=== PATIENT | female | born 1990 | race Caucasian/White ===

== ENCOUNTER → 2017-12-29 14:44 | Outpatient (CLI) | payer OTHER, MEDICAID, SELFPAY ==
[2018-01-19 16:36] LABS: HCG Quantitative /Beta subunit < 2.39 mIU/mL
== END ==
PROVIDERS: PCP Family Medicine; Visit Provider Family Medicine
DX: N94.6 Dysmenorrhea, unspecified (principal)
CPT/HCPCS: 36415; 84702

== ENCOUNTER → 2018-01-04 09:05 | Outpatient (CLI) | payer OTHER, MEDICAID, SELFPAY | PROVIDERS: Family Provider Family Medicine; PCP Family Medicine; Visit Provider Family Medicine | DX: R30.0 Dysuria (principal) ==

== ENCOUNTER 2018-07-26 16:41 | Emergency (ER) | payer OTHER, MEDICAID, SELFPAY ==
[2018-07-26 17:08] VITALS: BP 106/71; PULSE 103; RESP 18; TEMP 37.2; O2SAT 98; BMI 20.1
[2018-07-26 20:03] VITALS: BP 119/92; PULSE 88; RESP 20; TEMP 36.9; O2SAT 100
[2018-07-26] MEDS: KETOROLAC 60 MG/2 ML VIAL IM (21:10)
[2018-07-26] MEDS: OXYCODONE/ACETAMINOPHEN 5/325 TABLET 1 TAB PO (21:10)
[2018-07-26 21:41] VITALS: BP 124/86; PULSE 82; RESP 16; O2SAT 100
--- NOTE | 2018-08-04 12:32 | ED.ABDPAIN ---
HPI - Abdominal Pain General Chief Complaint: Abdominal Pain Stated Complaint: OVARIAN CYST CAUSING PROBLEMS Time Seen by Provider: 07/26/18 20:09 Source: patient Mode of arrival: ambulatory Limitations: no limitations History of Present Illness HPI narrative: Patient complains of pelvic pain for the past week, and states she has a history of an ovarian cyst, which she has concern may have ruptured. She states that she does not have any more of her pain medicine, and that it was not working very well. Patient has had prior imaging demonstrating ovarian cyst, and in fact, had a workup including UA and ultrasound, on Thursday for the same problem. She states she was sent here by Dr. Eng for pain control, and was also seen at [facility] emergency department on Thursday. The patient states that she is a patient of Dr. Acosta, but that she has not been able to get in to see Dr. Acosta for this problem. Patient states she has not had any vaginal bleeding or discharge. No nausea or vomiting. No diarrhea or hematoma to area. No melena or hematochezia. No dysuria. No fevers. No chest symptoms. Patient states that the pain is suprapubic and slightly to the left. Pain is 5/10 currently and has been 10/10 at the worst. Nothing makes better or worse. Related Data Home Medications Medication Instructions Recorded Confirmed acetaminophen [Tylenol Extra 0 mg PO Q6HP PRN #0 10/01/17 07/19/18 Strength] ibuprofen 600 mg PO Q6HP PRN #0 10/01/17 07/26/18 desogestrel-ethinyl estradiol 1 tab PO DAILY 07/26/18 07/26/18 [Enskyce] doxycycline hyclate 100 mg PO [id number] 07/26/18 07/26/18 fluconazole 150 mg PO QWEEK 07/26/18 07/26/18 hydrocodone-acetaminophen 1 tab PO Q6H PRN 07/26/18 07/26/18 ondansetron HCl [Zofran] 8 mg PO Q6H PRN 07/26/18 07/26/18 Previous Rx's Medication Instructions Recorded albuterol sulfate HFA 90 2 puff INHALATION Q4HP PRN #1 inh 04/02/18 mcg/actuation aerosol inhaler pregabalin 150 mg capsule 150 mg PO BID #60 cap 04/02/18 lorazepam 0.5 mg tablet 0.5 mg PO Q6H PRN #20 tab 05/20/18 cyclobenzaprine 10 mg tablet 10 mg PO TID #30 tab 06/14/18 dicyclomine 20 mg tablet 20 mg PO QID #45 tab 06/16/18 oxycodone-acetaminophen 5 mg-325 1 tab PO BEDTIME PRN #10 tab 07/19/18 mg tablet sertraline 50 mg tablet 75 mg PO DAILY #45 tab 07/19/18 oxycodone-acetaminophen [Percocet] 1 tab PO Q4-6H PRN #8 tab 07/26/18 ketorolac 10 mg tablet 10 mg PO Q6H PRN 2 Days #8 tab 08/04/18 levonorgestrel 0.15 mg-ethinyl 1 tab PO DAILY #28 tab 08/04/18 estradiol 0.03 mg tablet oxycodone-acetaminophen 5 mg-325 1 tab PO Q4-6H PRN #10 tab 08/04/18 mg tablet Allergies Allergy/AdvReac Type Severity Reaction Status Date / Time clindamycin [CLINDAMYCIN] Allergy Unknown Verified 07/26/18 17:14 codeine [CODEINE] Allergy Unknown Verified 07/26/18 17:14 gabapentin [GABAPENTIN] Allergy Unknown too Verified 07/26/18 17:14 sedating morphine [MORPHINE] Allergy Unknown Verified 07/26/18 17:14 tramadol [TRAMADOL] Allergy Unknown Verified 07/26/18 17:14 pain contract Allergy Unknown Uncoded 04/02/18 13:55 Review of Systems Review of Systems All systems reviewed & are unremarkable except as noted in HPI and below Constitutional Denies chills, Denies fever(s), Denies lethargy and Denies weakness Eyes Denies change in vision, Denies eye discharge, Denies irritation and Denies loss of vision ENT Ears, Nose, Mouth, and Throat: Denies change in voice, Denies neck pain and Denies sore throat Cardiovascular Denies chest pain, Denies irregular heart rhythm, Denies lightheadedness, Denies palpitations, Denies dyspnea, Denies dyspnea on exertion and Denies orthopnea Respiratory Denies cough, Denies dyspnea, Denies dyspnea on exertion and Denies wheezing Gastrointestinal Gastrointestinal: Reports abdominal pain ( pelvic), Denies change in bowel habits, Denies diarrhea, Denies nausea and Denies vomiting Genitourinary Denies hematuria, Denies flank pain, Denies urinary incontinence and Denies urinary urgency Musculoskeletal Denies neck pain Integumentary/Breasts Denies pruritus, Denies erythema, Denies rash and Denies wounds Neurologic Denies confusion, Denies loss of vision and Denies weakness Psychiatric Denies anxiety, Denies confusion, Denies depression, Denies homicidal ideation and Denies suicidal ideation Endocrine Denies palpitations Hematologic/Lymphatic Denies easy bruising Allergic/Immunologic Denies wheezing [facility] Medical History Headache (Chronic ~1999) Anxiety and depression (Chronic) Abnormal Pap smear of cervix (Chronic) Acne (Chronic ~2012) Ankle pain (Chronic) Frequent UTI (Chronic) Human papillomavirus (Chronic ~2008) IBS (irritable bowel syndrome) (Chronic ~2007) Lumbar strain (Chronic) Migraines (Chronic) Ovarian cyst (Chronic ~2009) PTSD (post-traumatic stress disorder) (Chronic) Painful menstrual periods (Chronic) Seasonal allergies (Chronic) Shoulder pain (Chronic) Chickenpox (Resolved ~1991) Surgical History History of delivery (Resolved) History of delivery (Resolved) History of laminectomy (Resolved ~06/09/97) History of microdiscectomy (Resolved) Anesthesia (Inactive) Status post laparoscopy (12/26/11) Family History Brother Age: 29 Hepatitis C Father Age: 48 Heart disease Mental health problem Heart attack Grandmother Breast cancer Grandfather Age: 76 Stroke Grandmother Age: 70 Heart attack Hepatitis C Lupus Social History Smoking Status: Current every day smoker Exam Initial Vital Signs Initial Vital Signs: Vital Signs Temperature 99.0 F 07/26/18 17:08 Pulse Rate 103 H 07/26/18 17:08 Respiratory Rate 18 07/26/18 17:08 Blood Pressure 106/71 07/26/18 17:08 Pulse Oximetry 98 07/26/18 17:08 Const General: cooperative and well developed Nutritional Appearance: well nourished Orientation: alert, awake, oriented x3 and not confused HENPR Head: normocephalic and atraumatic Ears: external ears normal and TM's normal bilaterally Nose: external nose normal and No nasal discharge Face and sinus: sinuses nontender, face symmetric, no sinus tenderness and No dry mucous membranes Mouth: oral mucosae normal and moist mucous membranes Teeth and gingiva: dentition normal Throat: tonsils normal and uvula midline Eyes General: appearance normal, both eyes and all related structures Eyelids: eyelids normal Conjunctivae: conjunctivae normal Sclera: sclerae normal Pupils: PERRL EOM: EOM intact bilaterally Neck Neck: normal visual inspection, trachea midline, No lymphadenopathy, No midline deformity and No JVD Lymphatic: No lymphedema Chest Chest: normal inspection of the chest Resp Effort & Inspection: normal respiratory effort, able to speak in complete sentences, no respiratory distress and no use of accessory muscles Auscultation: clear to auscultation bilaterally, no rales, no rhonchi and no wheezes Cardio Rate: regular rate Rhythm: regular rhythm Heart Sounds: no click, no gallops, no murmurs and no rubs Pulses: normal peripheral pulses GI Inspection: non-distended Palpation: soft, no hepatosplenomegaly, No guarding, No pulsatile mass, No rigid and tender ( moderate, left lower quadrant and suprapubic area. No rebound or guarding.) Auscultation: normal bowel sounds Back/Spine/Pelvis Back: No CVA tenderness Cervical Spine: cervical ROM normal and No pain with cervical ROM Thoracic/Lumbar Spine: thoracic and lumbar spine normal to inspection Skin General: no rashes or lesions noted, No jaundice and No petechiae Neuro General: alert, oriented x3, gait normal and no focal motor deficits Speech: speech normal Extrem General: full ROM, no clubbing, cyanosis or edema, no pedal edema and no calf tenderness Psych Appearance: well kempt Mental Status: mental status grossly normal Attitude: cooperative Thought Content: normal and suicidality Judgment: judgment good Course Course Narrative: Patient was treated symptomatically for her pain. She stated the pain had been going on for the last few days, and I did not feel that this was likely to be a torsion, at this point. The patient had already had imaging which demonstrated a cyst, as well as negative urinary workup,and I felt at this point, as the patient stated her home medications were not working well enough, that the patient would need to ultimately follow up with her OBGYN , Dr. Acosta, to have further evaluation, and decide if the cyst should be surgically removed, or treated more conservatively. The patient has been given a dose of Toradol and Percocet in the emergency department which she states has improved her pain. Orders Ordered: Discontinued Medications Ketorolac Tromethamine (Toradol) 60 mg IM NOW ONE Stop: 07/26/18 20:55 Last Admin: 07/26/18 21:10 Dose: 60 mg Oxycodone/Acetaminophen (Percocet 5/325) 1 tab PO NOW ONE Stop: 07/26/18 20:55 Last Admin: 07/26/18 21:10 Dose: 1 tab MDM - Abdominal Pain Medical Records Attestation: I reviewed the patient's medical records. Discharge Plan Departure Patient Disposition: Home Clinical Impression: Pelvic pain Discharge Date/Time: 07/26/18 21:50 Interventions: ED Discharge Assessment Last Done: 07/26/18 21:41 Instructions: Chronic Pelvic Pain-Female Activity Restrictions/Additional Instructions: Please call Dr. Acosta's office tomorrow to set up an appointment with Dr. Acosta or one of her associates. Prescriptions: New oxycodone-acetaminophen [Percocet] 5-325 mg tablet 1 tab PO Q4-6H PRN (Reason: pain) Qty: 8 RF: 0 No Action acetaminophen [Tylenol Extra Strength] 500 MG tablet PO Q6HP PRNQty: 0 RF: 0 ibuprofen 600 MG tablet 600 mg PO Q6HP PRN (Reason: pain) Qty: 0 RF: 0 dicyclomine 20 mg tablet 20 mg PO QID Qty: 45 RF: 0 pregabalin [Lyrica] 150 mg capsule 150 mg PO BID Qty: 60 RF: 2 albuterol sulfate [Ventolin HFA] 90 mcg/actuation HFA aerosol inhaler 2 puff INHALATION Q4HP PRN (Reason: shortness of breath or wheezing) Qty: 1 RF: 5 cyclobenzaprine 10 mg tablet 10 mg PO TID Qty: 30 RF: 0 sertraline 50 mg tablet 75 mg PO DAILY Qty: 45 RF: 2 oxycodone-acetaminophen 5-325 mg tablet 1 tab PO BEDTIME PRN (Reason: pain) Qty: 10 RF: 0 lorazepam 0.5 mg tablet 0.5 mg PO Q6H PRN (Reason: anxiety) Qty: 20 RF: 1 levonorgestrel-ethinyl estrad [Gloria] 0.15-0.03 mg tablet 1 tab PO DAILY Qty: 28 RF: 11 ketorolac 10 mg tablet 10 mg PO Q6H PRN (Reason: pain) 2 Days Qty: 8 RF: 0 oxycodone-acetaminophen [Percocet] 5-325 mg tablet 1 tab PO Q4-6H PRN (Reason: pain) Qty: 10 RF: 0 desogestrel-ethinyl estradiol [Enskyce] 0.15-0.03 mg tablet 1 tab PO DAILY RF: 0 doxycycline hyclate 100 mg capsule 100 mg PO [id number] RF: 0 fluconazole 150 mg tablet 150 mg PO QWEEK RF: 0 hydrocodone-acetaminophen 5-325 mg tablet 1 tab PO Q6H PRN (Reason: pain) RF: 0 ondansetron HCl [Zofran] 8 mg tablet 8 mg PO Q6H PRN (Reason: nausea) RF: 0 Referrals: Beth Acosta MD [Physician] - Pricila Eng DO [Primary Care Provider] -
== END 2018-07-26 21:50 | disposition home or self-care (01) ==
PROVIDERS: Emergency Provider Emergency Medicine; Family Provider Family Medicine; PCP Family Medicine
DX: R10.2 Pelvic and perineal pain (principal)
CPT/HCPCS: 96372; 99282; 99283; J1885

== ENCOUNTER 2018-10-08 16:18 | Emergency (ER) | payer OTHER, MEDICAID, SELFPAY ==
[2018-10-08 16:28] VITALS: BP 118/84; PULSE 102; RESP 18; TEMP 36.3; O2SAT 100
--- NOTE | 2018-10-08 19:34 | ED.FEMALEGU ---
HPI - Female Genitourinary <ARGENIS Hui - Last Filed: 10/08/18 21:58> General Chief complaint: Urogenital-Female Stated complaint: pelvic pain x 4 days Time Seen by Provider: 10/08/18 17:43 Source: patient Mode of arrival: ambulatory Limitations: no limitations History of Present Illness HPI Narrative: 27-year-old female with history of chronic pain and ovarian cyst who is an everyday smoker here for complaint of pain into her pelvic region over the past 4 days. She denies any vaginal bleeding. She does state that she has had little increased vaginal discharge over the past couple of weeks. She states that this may be due to the fact that she changed control pills. she is unsure of her last menstrual period. She denies any nausea vomiting. Last bowel movement was yesterday and was unremarkable. No urinary symptoms. She states she is concerned that she has an ovarian cyst she has had this in the past. Worsening pain with palpation to the pelvic region. She denies being sexually active over the past several months. Related Data Home Medications Medication Instructions Recorded Confirmed acetaminophen [Tylenol Extra 0 mg PO Q6HP PRN #0 10/01/17 09/22/18 Strength] ibuprofen 600 mg PO Q6HP PRN #0 10/01/17 09/22/18 Previous Rx's Medication Instructions Recorded albuterol sulfate HFA 90 2 puff INHALATION Q4HP PRN #1 inh 04/02/18 mcg/actuation aerosol inhaler dicyclomine 20 mg tablet 20 mg PO QID #45 tab 06/16/18 levonorgestrel 0.15 mg-ethinyl 1 tab PO DAILY #28 tab 08/04/18 estradiol 0.03 mg tablet pregabalin 150 mg capsule 150 mg PO BID #60 cap 08/13/18 sertraline 100 mg tablet 100 mg PO DAILY #30 tab 08/27/18 oxycodone-acetaminophen 5 mg-325 1 tab PO Q4-6H PRN #10 tab 09/22/18 mg tablet ondansetron HCl 8 mg tablet 8 mg PO Q6H PRN #30 tab 09/23/18 diazepam 10 mg tablet 10 mg PO TID PRN #45 tab 10/06/18 Allergies Allergy/AdvReac Type Severity Reaction Status Date / Time clindamycin [CLINDAMYCIN] Allergy Unknown Verified 09/22/18 15:31 codeine [CODEINE] Allergy Unknown Verified 09/22/18 15:31 gabapentin [GABAPENTIN] Allergy Unknown too Verified 09/22/18 15:31 sedating morphine [MORPHINE] Allergy Unknown Verified 09/22/18 15:31 tramadol [TRAMADOL] Allergy Unknown Verified 09/22/18 15:31 pain contract Allergy Unknown Uncoded 09/22/18 15:31 Review of Systems <ARGENIS Hui - Last Filed: 10/08/18 21:58> Constitutional Denies chills, Denies fever(s), Denies lethargy and Denies weakness Eyes Denies change in vision, Denies eye discharge, Denies irritation and Denies loss of vision ENT Ears, Nose, Mouth, and Throat: Denies change in voice, Denies neck pain and Denies sore throat Cardiovascular Denies chest pain, Denies irregular heart rhythm, Denies lightheadedness, Denies palpitations, Denies dyspnea, Denies dyspnea on exertion and Denies orthopnea Respiratory Denies cough, Denies dyspnea, Denies dyspnea on exertion and Denies wheezing Gastrointestinal Comments: Abdominal/ pelvic pain Genitourinary Denies hematuria, Denies flank pain, Denies urinary incontinence and Denies urinary urgency Musculoskeletal Denies neck pain Integumentary/Breasts Denies pruritus, Denies erythema, Denies rash and Denies wounds Neurologic Denies confusion, Denies loss of vision and Denies weakness Psychiatric Denies anxiety, Denies confusion, Denies depression, Denies homicidal ideation and Denies suicidal ideation Endocrine Denies palpitations Hematologic/Lymphatic Denies easy bruising Allergic/Immunologic Denies wheezing PFSH <ARGENIS Hui - Last Filed: 10/08/18 21:58> Medical History IBS (irritable bowel syndrome) (Chronic ~2007) Ovarian cyst (Chronic ~2009) Headache (Chronic ~1999) Anxiety and depression (Chronic) Abnormal Pap smear of cervix (Chronic) Acne (Chronic ~2012) Ankle pain (Chronic) Frequent UTI (Chronic) Human papillomavirus (Chronic ~2008) Lumbar strain (Chronic) Migraines (Chronic) PTSD (post-traumatic stress disorder) (Chronic) Painful menstrual periods (Chronic) Seasonal allergies (Chronic) Shoulder pain (Chronic) Chickenpox (Resolved ~1991) Surgical History History of delivery (Resolved) History of delivery (Resolved) History of laminectomy (Resolved ~06/09/97) History of microdiscectomy (Resolved) Anesthesia (Inactive) Status post laparoscopy (12/26/11) Family History Brother Age: 29 Hepatitis C Father Age: 49 Heart disease Mental health problem Heart attack Grandmother Breast cancer Grandfather Age: 77 Stroke Grandmother Age: 71 Heart attack Hepatitis C Lupus Social History Smoking Status: Current every day smoker Family History Brother Age: 29 Hepatitis C Father Age: 49 Heart disease Mental health problem Heart attack Grandmother Breast cancer Grandfather Age: 77 Stroke Grandmother Age: 71 Heart attack Hepatitis C Lupus Social History Smoking Status: Current every day smoker Exam <ARGENIS Hui - Last Filed: 10/08/18 21:58> Initial Vital Signs Initial Vital Signs: Vital Signs Temperature 97.4 F L 10/08/18 16:28 Pulse Rate 102 H 10/08/18 16:28 Respiratory Rate 18 10/08/18 16:28 Blood Pressure 118/84 10/08/18 16:28 Pulse Oximetry 100 10/08/18 16:28 Const General: cooperative and well developed Nutritional Appearance: well nourished Orientation: alert, awake, oriented x3 and not confused [facility] Mouth: oral mucosae normal and moist mucous membranes Eyes Conjunctivae: conjunctivae normal Sclera: sclerae normal Pupils: PERRL EOM: EOM intact bilaterally Resp Effort & Inspection: normal respiratory effort, able to speak in complete sentences, no respiratory distress and no use of accessory muscles Auscultation: clear to auscultation bilaterally, no rales, no rhonchi and no wheezes Cardio Rate: regular rate Rhythm: regular rhythm Heart Sounds: no click, no gallops, no murmurs and no rubs Pulses: normal peripheral pulses GI Inspection: non-distended Palpation: soft, no hepatosplenomegaly, No guarding, No pulsatile mass and tender ( tenderness to right lower quadrant and also to a pelvic region.) Auscultation: normal bowel sounds General: No CVA tenderness Skin General: no rashes or lesions noted, No jaundice and No petechiae Neuro General: alert, oriented x3, gait normal and no focal motor deficits Speech: speech normal <Kapil Younger DO - Last Filed: 10/08/18 23:32> Initial Vital Signs Initial Vital Signs: Vital Signs Temperature 97.4 F L 10/08/18 16:28 Pulse Rate 102 H 10/08/18 16:28 Respiratory Rate 18 10/08/18 16:28 Blood Pressure 118/84 10/08/18 16:28 Pulse Oximetry 100 10/08/18 16:28 Course <ARGENIS Hui - Last Filed: 10/08/18 21:58> Orders Ordered: ED Orders 10/08/18 19:34 CT abdomen pelvis w con Stat US pelvic complete Stat 10/08/18 20:00 Complete Blood Count AUTO DIFF Stat Comprehensive Metabolic Panel Stat Lipase Stat Discontinued Medications Hydromorphone HCl (Dilaudid) 1 mg IV NOW ONE Stop: 10/08/18 20:23 Last Admin: 10/08/18 20:38 Dose: 1 mg Sodium Chloride (Normal Saline 0.9%) 1,000 mls @ 1,000 mls/hr IV BOLUS ONE Stop: 10/08/18 20:33 Last Infusion: 10/08/18 21:01 Dose: 0 mls/hr Admin: 10/08/18 20:04 Dose: 1,000 mls/hr Ondansetron HCl (Zofran) 4 mg IV NOW ONE Stop: 10/08/18 19:35 Last Admin: 10/08/18 20:04 Dose: 4 mg Vital Signs - 8 hr 10/08/18 16:28 10/08/18 20:22 10/08/18 22:01 Temperature 97.4 F L Pulse Rate 102 H 78 77 Respiratory Rate 18 10 L 18 Blood Pressure 118/84 Blood Pressure [Left Arm] 113/72 115/71 Pulse Oximetry 100 100 100 <Kapil Younger DO - Last Filed: 10/08/18 23:32> Orders Ordered: ED Orders 10/08/18 19:34 CT abdomen pelvis w con Stat US pelvic complete Stat 10/08/18 20:00 Complete Blood Count AUTO DIFF Stat Comprehensive Metabolic Panel Stat Lipase Stat Discontinued Medications Hydromorphone HCl (Dilaudid) 1 mg IV NOW ONE Stop: 10/08/18 20:23 Last Admin: 10/08/18 20:38 Dose: 1 mg Sodium Chloride (Normal Saline 0.9%) 1,000 mls @ 1,000 mls/hr IV BOLUS ONE Stop: 10/08/18 20:33 Last Infusion: 10/08/18 21:01 Dose: 0 mls/hr Admin: 10/08/18 20:04 Dose: 1,000 mls/hr Ondansetron HCl (Zofran) 4 mg IV NOW ONE Stop: 10/08/18 19:35 Last Admin: 10/08/18 20:04 Dose: 4 mg Vital Signs - 8 hr 10/08/18 16:28 10/08/18 20:22 10/08/18 22:01 Temperature 97.4 F L Pulse Rate 102 H 78 77 Respiratory Rate 18 10 L 18 Blood Pressure 118/84 Blood Pressure [Left Arm] 113/72 115/71 Pulse Oximetry 100 100 100 MDM - Female Genitourinary <ARGENIS Hui - Last Filed: 10/08/18 21:58> Lab Data Result diagrams: 10/08/18 20:00 10/08/18 20:00 Lab Results 10/08/18 10/08/18 Range/Units 20:00 20:00 WBC 10.7 (4.5-11.0) X10^3/uL RBC 4.01 (4.0-5.2) X10^6/uL Hgb 12.9 (12.0-16.0) g/dL Hct 37.7 (36-46) % MCV 93.9 (80-100) fL MCH 32.1 (26-34) PG MCHC 34.2 (30-36) % RDW 13.0 (11.6-14.8) % Plt Count 337 (150-400) X10^3/uL Neut % (Auto) 60.2 (50-75) % Lymph % (Auto) 30.3 (25-40) % [place] % (Auto) 7.7 (3-14) % Eos % (Auto) 1.2 L (2-4) % Baso % (Auto) 0.6 (0-2) % Neut # (Auto) 6400 (6252-1825) /uL Lymph # (Auto) 3200 (4164-3064) /uL [place] # (Auto) 800 (0-900) /uL Eos # (Auto) 100 (0-450) /uL Baso # (Auto) 100 (0-100) /uL Sodium 138 (137-145) mmol/L Potassium 4.1 (3.4-5.1) mmol/L Chloride 102 (98-107) mmol/L Carbon Dioxide 24 (22-32) mmol/L BUN 12 (7-17) mg/dL Creatinine 0.60 (0.52-1.04) mg/dL Estimated GFR > 60.0 (>60) mL/min BUN/Creatinine Ratio 20.0 (6-22) Glucose 83 (70-100) mg/dL Calcium 9.3 (8.4-10.2) mg/dL Total Bilirubin 0.3 (0.2-1.3) mg/dL AST 15 (14-36) IU/L ALT 24 (9-52) IU/L Alkaline Phosphatase 30 L (38-126) U/L Total Protein 7.6 (6.3-8.2) g/dL Albumin 4.6 (3.5-5.0) g/dL Globulin 3.0 (1.7-4.1) g/dL Albumin/Globulin Ratio 1.5 (1.0-2.8) Lipase 215 (23-300) U/L Point of Care Testing Test Results Negative Urine Dip Bedside Urine Glucose Negative Bedside Urine Bilirubin - Negative Bedside Urine Ketone - Negative Urine Specific [place] 1.015 Bedside Urine Occult Blood - Negative Bedside Urine pH 7.0 Bedside Urine Protein - Negative Bedside Urine Urobilinogen - Negative Bedside Urine Nitrite - Negative Bedside Urine Leukocytes - Negative Esterase Imaging Data pelvic us: Radiologist's impression: [address] [address] Ultrasound Report Signed Patient: Katie Adams MMR#: [id number] : 1990Acct:[id number] Age/Sex: FDate of Service: 10/08/18 Loc: ED Accession Number: [id number] Procedure: US pelvic complete Ordering Provider: Vincent Robertson PROCEDURE: US PELVIC COMPLETE INDICATIONS: bilateral pelvic pain and right lower quadrant pain TECHNIQUE: Real-time scanning was performed of the pelvic organs, with image documentation. Additional endovaginal scanning was necessary due to incomplete visualization of the adnexal and endometrial structures by transabdominal scanning. COMPARISON: None. FINDINGS: Transabdominal scanning: Limited scanning through the kidneys shows no hydronephrosis. No pathologic free abdominal or pelvic fluid. Endovaginal scanning: Uterus: Uterus is normal in size at 6.6 x 2.2 x 4.0 cm. The endometrium measures 1 mm in combined thickness. Ovaries: Right ovary measures 2.2 x 1.5 x 1.4 cm. Left ovary measures 2.4 x 1.1 x 1.7 cm. The ovaries are unremarkable bilaterally IMPRESSION: Unremarkable examination as above. Dictated by: Carlos A Aguayo M.D. on 10/08/2018 at 20:57 Approved by: Carlos A Aguayo M.D. on 10/08/2018 at 20:58 CT scan - abdomen: Radiologist's impression: [place] [address] CT Scan Report Signed Patient: Katie Adams MMR#: [id number] : 1990Acct:[id number] Age/Sex: FDate of Service: 10/08/18 Loc: ED Accession Number: [id number] Procedure: CT abdomen pelvis w con Ordering Provider: Vincent Robertson PROCEDURE: CT ABDOMEN PELVIS W CON INDICATIONS: right lower quadrant pain TECHNIQUE: After the administration of oral and intravenous contrast, 5 mm thick sections acquired from the diaphragms to the symphysis. 5 mm thick coronal and sagittal reformats were performed. For radiation dose reduction, the following was used: automated exposure control, adjustment of mA and/or kV according to patient size. COMPARISON: None. FINDINGS: Image quality: Excellent. ABDOMEN: Lung bases: Lung bases are clear. Heart size is normal. Solid organs: Liver is normal in size and enhancement. Gallbladder grossly unremarkable. Biliary system is non-dilated. Pancreas enhances normally. Spleen is normal in size and enhancement. No adrenal nodules. Kidneys are normal in size and enhancement, without hydronephrosis. Peritoneum and bowel: Stomach, small bowel, and colon loops are normal in caliber and wall thickness. No free fluid or air. The appendix is within normal limits and seen on image 60 series 2 Nodes and vessels: No retroperitoneal or mesenteric adenopathy. Aorta and inferior vena cava are normal in caliber. Miscellaneous: No ventral hernias. PELVIS: Genitourinary: Bladder distended otherwise unremarkable. Miscellaneous: No inguinal hernias or adenopathy. Bones: No suspicious bony lesions. No vertebral body compression fractures. IMPRESSION: Normal appendix. No acute abnormality. Moderate stool. Dictated by: Carlos A Aguayo M.D. on 10/08/2018 at 21:36 Approved by: Carlos A Aguayo M.D. on 10/08/2018 at 21:38 MDM Narrative Medical decision making narrative: CT of the abdomen pelvis was obtained was negative for any acute findings. Ultrasound of the pelvis region was obtained and was also negative for any acute findings. CBC and Chem panel lipase were obtained were unremarkable. Urinalysis was negative for urinary tract infection and also . Intended to obtain a pelvic exam and obtain wet prep GC Chlamydia and culture and check for cervical tenderness and adnexal tenderness patient refused. differential between pelvic complications such as endometriosis or infection. Will have her follow up with ob gyn physician assistant in the next few days for re-evaluation. Use [id number] Tylenol as needed for any discomfort. For any worsening symptoms return to the emergency room. <Kapil Younger, - Last Filed: 10/08/18 23:32> Lab Data Lab Results 10/08/18 10/08/18 Range/Units 20:00 20:00 WBC 10.7 (4.5-11.0) X10^3/uL RBC 4.01 (4.0-5.2) X10^6/uL Hgb 12.9 (12.0-16.0) g/dL Hct 37.7 (36-46) % MCV 93.9 (80-100) fL MCH 32.1 (26-34) PG MCHC 34.2 (30-36) % RDW 13.0 (11.6-14.8) % Plt Count 337 (150-400) X10^3/uL Neut % (Auto) 60.2 (50-75) % Lymph % (Auto) 30.3 (25-40) % [place] % (Auto) 7.7 (3-14) % Eos % (Auto) 1.2 L (2-4) % Baso % (Auto) 0.6 (0-2) % Neut # (Auto) 6400 (9552-2164) /uL Lymph # (Auto) 3200 (4323-3230) /uL [place] # (Auto) 800 (0-900) /uL Eos # (Auto) 100 (0-450) /uL Baso # (Auto) 100 (0-100) /uL Sodium 138 (137-145) mmol/L Potassium 4.1 (3.4-5.1) mmol/L Chloride 102 (98-107) mmol/L Carbon Dioxide 24 (22-32) mmol/L BUN 12 (7-17) mg/dL Creatinine 0.60 (0.52-1.04) mg/dL Estimated GFR > 60.0 (>60) mL/min BUN/Creatinine Ratio 20.0 (6-22) Glucose 83 (70-100) mg/dL Calcium 9.3 (8.4-10.2) mg/dL Total Bilirubin 0.3 (0.2-1.3) mg/dL AST 15 (14-36) IU/L ALT 24 (9-52) IU/L Alkaline Phosphatase 30 L (38-126) U/L Total Protein 7.6 (6.3-8.2) g/dL Albumin 4.6 (3.5-5.0) g/dL Globulin 3.0 (1.7-4.1) g/dL Albumin/Globulin Ratio 1.5 (1.0-2.8) Lipase 215 (23-300) U/L Point of Care Testing Test Results Negative Urine Dip Bedside Urine Glucose Negative Bedside Urine Bilirubin - Negative Bedside Urine Ketone - Negative Urine Specific [place] 1.015 Bedside Urine Occult Blood - Negative Bedside Urine pH 7.0 Bedside Urine Protein - Negative Bedside Urine Urobilinogen - Negative Bedside Urine Nitrite - Negative Bedside Urine Leukocytes - Negative Esterase Discharge Plan Departure Patient Disposition: Home Clinical Impression: Pelvic pain Discharge Date/Time: 10/08/18 22:07 Interventions: ED Discharge Assessment Last Done: 10/08/18 22:07 Instructions: DI for Pelvic Pain Activity Restrictions/Additional Instructions: ultrasound and abdominal CT were obtained and were unremarkable. Laboratory results today were also unremarkable. No emergent etiology of for your discomfort in the pelvic region is identified. Recommend following up with ob gyn physician assistant in the next couple days for re-evaluation. For any worsening symptoms return to the emergency room. Use [id number] Tylenol as needed for any discomfort. Prescriptions: No Action acetaminophen [Tylenol Extra Strength] 500 MG tablet PO Q6HP PRNQty: 0 RF: 0 ibuprofen 600 MG tablet 600 mg PO Q6HP PRN (Reason: pain) Qty: 0 RF: 0 dicyclomine 20 mg tablet 20 mg PO QID Qty: 45 RF: 0 pregabalin [Lyrica] 150 mg capsule 150 mg PO BID Qty: 60 RF: 0 ondansetron HCl [Zofran] 8 mg tablet 8 mg PO Q6H PRN (Reason: nausea) Qty: 30 RF: 5 diazepam 10 mg tablet 10 mg PO TID PRN (Reason: spasm) Qty: 45 RF: 0 albuterol sulfate [Ventolin HFA] 90 mcg/actuation HFA aerosol inhaler 2 puff INHALATION Q4HP PRN (Reason: shortness of breath or wheezing) Qty: 1 RF: 5 sertraline 100 mg tablet 100 mg PO DAILY Qty: 30 RF: 3 oxycodone-acetaminophen 5-325 mg tablet 1 tab PO Q4-6H PRN (Reason: pain) Qty: 10 RF: 0 levonorgestrel-ethinyl estrad [[place]] 0.15-0.03 mg tablet 1 tab PO DAILY Qty: 28 RF: 11 Referrals: Pricila Eng DO [Primary Care Provider] - <Kapil Younger DO - Last Filed: 10/08/18 23:32> Cosign ED Attending Niraj Attestation: I was available for consultation during this patient's emergency department encounter
[2018-10-08] MEDS: SODIUM CHLORIDE 0.9% 1,000 ML 1000 ML IV (20:04)
[2018-10-08] MEDS: ONDANSETRON 4 MG/2 ML INJ IV (20:04)
[2018-10-08 20:07] LABS: Add Manual Diff / Slide Review NO; Basophils Absolute Auto 100 /uL (0-100); Basophils Percent Auto 0.6 % (0-2); Eosinophils Absolute Auto 100 /uL (0-450); Eosinophils Percent Auto 1.2 % (2-4); Hematocrit 37.7 % (36-46); Hemoglobin 12.9 g/dL (12.0-16.0); Lymphocytes Absolute Auto 3200 /uL (1100-4500); Lymphocytes Percent Auto 30.3 % (25-40); Mean Corpuscular HGB Conc 34.2 % (30-36); Mean Corpuscular Hemoglobin 32.1 PG (26-34); Mean Corpuscular Volume 93.9 fL (80-100); Monocytes Absolute Auto 800 /uL (0-900); Monocytes Percent Auto 7.7 % (3-14); Neutrophils Absolute Auto 6400 /uL (1500-7000); Neutrophils Percent Auto 60.2 % (50-75); Platelet Count 337 X10^3/uL (150-400); Red Blood Cell Count 4.01 X10^6/uL (4.0-5.2); White Blood Cell Count 10.7 X10^3/uL (4.5-11.0)
[2018-10-08 20:19] LABS: Alanine Aminotransferase 24 IU/L (9-52); Albumin 4.6 g/dL (3.5-5.0); Albumin Globulin Ratio 1.5 (1.0-2.8); Alkaline Phosphatase 30 U/L (38-126); Aspartate Aminotransferase 15 IU/L (14-36); Bilirubin Total 0.3 mg/dL (0.2-1.3); Blood Urea Nitrogen 12 mg/dL (7-17); Calcium 9.3 mg/dL (8.4-10.2); Carbon Dioxide 24 mmol/L (22-32); Chloride 102 mmol/L (98-107); Estimated Glomerular Filt Rate > 60.0 mL/min (>60); Glucose 83 mg/dL (70-100); HEMOLYSIS < 15 (0-50); Lipase 215 U/L (23-300); Potassium 4.1 mmol/L (3.4-5.1); Sodium 138 mmol/L (137-145); Total Protein 7.6 g/dL (6.3-8.2)
[2018-10-08 20:22] VITALS: BP 113/72; PULSE 78; RESP 10; O2SAT 100
--- NOTE | 2018-10-08 20:36 | PC.NURSE ---
Pt reports having a ride home. The same person that brought me here. Pt understands the need to have a ride home in order to receive narcotic pain medication.
[2018-10-08] MEDS: HYDROMORPHONE 1 MG INJ IV (20:38)
--- NOTE | 2018-10-08 21:04 | ED_ITS ---
HPI - Female Genitourinary <ARGENIS Hui - Last Filed: 10/08/18 21:58> General Chief complaint: Urogenital-Female Stated complaint: pelvic pain x 4 days Time Seen by Provider: 10/08/18 17:43 Source: patient Mode of arrival: ambulatory Limitations: no limitations History of Present Illness HPI Narrative: 27-year-old female with history of chronic pain and ovarian cyst who is an everyday smoker here for complaint of pain into her pelvic region over the past 4 days. She denies any vaginal bleeding. She does state that she has had little increased vaginal discharge over the past couple of weeks. She states that this may be due to the fact that she changed control pills. she is unsure of her last menstrual period. She denies any nausea vomiting. Last bowel movement was yesterday and was unremarkable. No urinary symptoms. She states she is concerned that she has an ovarian cyst she has had this in the past. Worsening pain with palpation to the pelvic region. She denies being sexually active over the past several months. Related Data Home Medications Medication Instructions Recorded Confirmed acetaminophen [Tylenol Extra 0 mg PO Q6HP PRN #0 10/01/17 09/22/18 Strength] ibuprofen 600 mg PO Q6HP PRN #0 10/01/17 09/22/18 Previous Rx's Medication Instructions Recorded albuterol sulfate HFA 90 2 puff INHALATION Q4HP PRN #1 inh 04/02/18 mcg/actuation aerosol inhaler dicyclomine 20 mg tablet 20 mg PO QID #45 tab 06/16/18 levonorgestrel 0.15 mg-ethinyl 1 tab PO DAILY #28 tab 08/04/18 estradiol 0.03 mg tablet pregabalin 150 mg capsule 150 mg PO BID #60 cap 08/13/18 sertraline 100 mg tablet 100 mg PO DAILY #30 tab 08/27/18 oxycodone-acetaminophen 5 mg-325 1 tab PO Q4-6H PRN #10 tab 09/22/18 mg tablet ondansetron HCl 8 mg tablet 8 mg PO Q6H PRN #30 tab 09/23/18 diazepam 10 mg tablet 10 mg PO TID PRN #45 tab 10/06/18 Allergies Allergy/AdvReac Type Severity Reaction Status Date / Time clindamycin [CLINDAMYCIN] Allergy Unknown Verified 09/22/18 15:31 codeine [CODEINE] Allergy Unknown Verified 09/22/18 15:31 gabapentin [GABAPENTIN] Allergy Unknown too Verified 09/22/18 15:31 sedating morphine [MORPHINE] Allergy Unknown Verified 09/22/18 15:31 tramadol [TRAMADOL] Allergy Unknown Verified 09/22/18 15:31 pain contract Allergy Unknown Uncoded 09/22/18 15:31 Review of Systems <ARGENIS Hui - Last Filed: 10/08/18 21:58> Constitutional Denies chills, Denies fever(s), Denies lethargy and Denies weakness Eyes Denies change in vision, Denies eye discharge, Denies irritation and Denies loss of vision ENT Ears, Nose, Mouth, and Throat: Denies change in voice, Denies neck pain and Denies sore throat Cardiovascular Denies chest pain, Denies irregular heart rhythm, Denies lightheadedness, Denies palpitations, Denies dyspnea, Denies dyspnea on exertion and Denies orthopnea Respiratory Denies cough, Denies dyspnea, Denies dyspnea on exertion and Denies wheezing Gastrointestinal Comments: Abdominal/ pelvic pain Genitourinary Denies hematuria, Denies flank pain, Denies urinary incontinence and Denies urinary urgency Musculoskeletal Denies neck pain Integumentary/Breasts Denies pruritus, Denies erythema, Denies rash and Denies wounds Neurologic Denies confusion, Denies loss of vision and Denies weakness Psychiatric Denies anxiety, Denies confusion, Denies depression, Denies homicidal ideation and Denies suicidal ideation Endocrine Denies palpitations Hematologic/Lymphatic Denies easy bruising Allergic/Immunologic Denies wheezing PFSH <ARGENIS Hui - Last Filed: 10/08/18 21:58> Medical History IBS (irritable bowel syndrome) (Chronic ~2007) Ovarian cyst (Chronic ~2009) Headache (Chronic ~1999) Anxiety and depression (Chronic) Abnormal Pap smear of cervix (Chronic) Acne (Chronic ~2012) Ankle pain (Chronic) Frequent UTI (Chronic) Human papillomavirus (Chronic ~2008) Lumbar strain (Chronic) Migraines (Chronic) PTSD (post-traumatic stress disorder) (Chronic) Painful menstrual periods (Chronic) Seasonal allergies (Chronic) Shoulder pain (Chronic) Chickenpox (Resolved ~1991) Surgical History History of delivery (Resolved) History of delivery (Resolved) History of laminectomy (Resolved ~06/09/97) History of microdiscectomy (Resolved) Anesthesia (Inactive) Status post laparoscopy (12/26/11) Family History Brother Age: 29 Hepatitis C Father Age: 49 Heart disease Mental health problem Heart attack Grandmother Breast cancer Grandfather Age: 77 Stroke Grandmother Age: 71 Heart attack Hepatitis C Lupus Social History Smoking Status: Current every day smoker Family History Brother Age: 29 Hepatitis C Father Age: 49 Heart disease Mental health problem Heart attack Grandmother Breast cancer Grandfather Age: 77 Stroke Grandmother Age: 71 Heart attack Hepatitis C Lupus Social History Smoking Status: Current every day smoker Exam <ARGENIS Hui - Last Filed: 10/08/18 21:58> Initial Vital Signs Initial Vital Signs: Vital Signs Temperature 97.4 F L 10/08/18 16:28 Pulse Rate 102 H 10/08/18 16:28 Respiratory Rate 18 10/08/18 16:28 Blood Pressure 118/84 10/08/18 16:28 Pulse Oximetry 100 10/08/18 16:28 Const General: cooperative and well developed Nutritional Appearance: well nourished Orientation: alert, awake, oriented x3 and not confused [facility] Mouth: oral mucosae normal and moist mucous membranes Eyes Conjunctivae: conjunctivae normal Sclera: sclerae normal Pupils: PERRL EOM: EOM intact bilaterally Resp Effort & Inspection: normal respiratory effort, able to speak in complete sentences, no respiratory distress and no use of accessory muscles Auscultation: clear to auscultation bilaterally, no rales, no rhonchi and no wheezes Cardio Rate: regular rate Rhythm: regular rhythm Heart Sounds: no click, no gallops, no murmurs and no rubs Pulses: normal peripheral pulses GI Inspection: non-distended Palpation: soft, no hepatosplenomegaly, No guarding, No pulsatile mass and tender ( tenderness to right lower quadrant and also to a pelvic region.) Auscultation: normal bowel sounds General: No CVA tenderness Skin General: no rashes or lesions noted, No jaundice and No petechiae Neuro General: alert, oriented x3, gait normal and no focal motor deficits Speech: speech normal <Kapil Younger DO - Last Filed: 10/08/18 23:32> Initial Vital Signs Initial Vital Signs: Vital Signs Temperature 97.4 F L 10/08/18 16:28 Pulse Rate 102 H 10/08/18 16:28 Respiratory Rate 18 10/08/18 16:28 Blood Pressure 118/84 10/08/18 16:28 Pulse Oximetry 100 10/08/18 16:28 Course <ARGENIS Hui - Last Filed: 10/08/18 21:58> Orders Ordered: ED Orders 10/08/18 19:34 CT abdomen pelvis w con Stat US pelvic complete Stat 10/08/18 20:00 Complete Blood Count AUTO DIFF Stat Comprehensive Metabolic Panel Stat Lipase Stat Discontinued Medications Hydromorphone HCl (Dilaudid) 1 mg IV NOW ONE Stop: 10/08/18 20:23 Last Admin: 10/08/18 20:38 Dose: 1 mg Sodium Chloride (Normal Saline 0.9%) 1,000 mls @ 1,000 mls/hr IV BOLUS ONE Stop: 10/08/18 20:33 Last Infusion: 10/08/18 21:01 Dose: 0 mls/hr Admin: 10/08/18 20:04 Dose: 1,000 mls/hr Ondansetron HCl (Zofran) 4 mg IV NOW ONE Stop: 10/08/18 19:35 Last Admin: 10/08/18 20:04 Dose: 4 mg Vital Signs - 8 hr 10/08/18 16:28 10/08/18 20:22 10/08/18 22:01 Temperature 97.4 F L Pulse Rate 102 H 78 77 Respiratory Rate 18 10 L 18 Blood Pressure 118/84 Blood Pressure [Left Arm] 113/72 115/71 Pulse Oximetry 100 100 100 <Kapil Younger DO - Last Filed: 10/08/18 23:32> Orders Ordered: ED Orders 10/08/18 19:34 CT abdomen pelvis w con Stat US pelvic complete Stat 10/08/18 20:00 Complete Blood Count AUTO DIFF Stat Comprehensive Metabolic Panel Stat Lipase Stat Discontinued Medications Hydromorphone HCl (Dilaudid) 1 mg IV NOW ONE Stop: 10/08/18 20:23 Last Admin: 10/08/18 20:38 Dose: 1 mg Sodium Chloride (Normal Saline 0.9%) 1,000 mls @ 1,000 mls/hr IV BOLUS ONE Stop: 10/08/18 20:33 Last Infusion: 10/08/18 21:01 Dose: 0 mls/hr Admin: 10/08/18 20:04 Dose: 1,000 mls/hr Ondansetron HCl (Zofran) 4 mg IV NOW ONE Stop: 10/08/18 19:35 Last Admin: 10/08/18 20:04 Dose: 4 mg Vital Signs - 8 hr 10/08/18 16:28 10/08/18 20:22 10/08/18 22:01 Temperature 97.4 F L Pulse Rate 102 H 78 77 Respiratory Rate 18 10 L 18 Blood Pressure 118/84 Blood Pressure [Left Arm] 113/72 115/71 Pulse Oximetry 100 100 100 MDM - Female Genitourinary <ARGENIS Hui - Last Filed: 10/08/18 21:58> Lab Data Result diagrams: 10/08/18 20:00 10/08/18 20:00 Lab Results 10/08/18 10/08/18 Range/Units 20:00 20:00 WBC 10.7 (4.5-11.0) X10^3/uL RBC 4.01 (4.0-5.2) X10^6/uL Hgb 12.9 (12.0-16.0) g/dL Hct 37.7 (36-46) % MCV 93.9 (80-100) fL MCH 32.1 (26-34) PG MCHC 34.2 (30-36) % RDW 13.0 (11.6-14.8) % Plt Count 337 (150-400) X10^3/uL Neut % (Auto) 60.2 (50-75) % Lymph % (Auto) 30.3 (25-40) % Weber % (Auto) 7.7 (3-14) % Eos % (Auto) 1.2 L (2-4) % Baso % (Auto) 0.6 (0-2) % Neut # (Auto) 6400 (3966-3230) /uL Lymph # (Auto) 3200 (1613-4267) /uL Weber # (Auto) 800 (0-900) /uL Eos # (Auto) 100 (0-450) /uL Baso # (Auto) 100 (0-100) /uL Sodium 138 (137-145) mmol/L Potassium 4.1 (3.4-5.1) mmol/L Chloride 102 (98-107) mmol/L Carbon Dioxide 24 (22-32) mmol/L BUN 12 (7-17) mg/dL Creatinine 0.60 (0.52-1.04) mg/dL Estimated GFR > 60.0 (>60) mL/min BUN/Creatinine Ratio 20.0 (6-22) Glucose 83 (70-100) mg/dL Calcium 9.3 (8.4-10.2) mg/dL Total Bilirubin 0.3 (0.2-1.3) mg/dL AST 15 (14-36) IU/L ALT 24 (9-52) IU/L Alkaline Phosphatase 30 L (38-126) U/L Total Protein 7.6 (6.3-8.2) g/dL Albumin 4.6 (3.5-5.0) g/dL Globulin 3.0 (1.7-4.1) g/dL Albumin/Globulin Ratio 1.5 (1.0-2.8) Lipase 215 (23-300) U/L Point of Care Testing Test Results Negative Urine Dip Bedside Urine Glucose Negative Bedside Urine Bilirubin - Negative Bedside Urine Ketone - Negative Urine Specific [place] 1.015 Bedside Urine Occult Blood - Negative Bedside Urine pH 7.0 Bedside Urine Protein - Negative Bedside Urine Urobilinogen - Negative Bedside Urine Nitrite - Negative Bedside Urine Leukocytes - Negative Esterase Imaging Data pelvic us: Radiologist's impression: [address] [address] Ultrasound Report Signed Patient: Katie Adams MMR#: [id number] : 1990Acct:[id number] Age/Sex: FDate of Service: 10/08/18 Loc: ED Accession Number: [id number] Procedure: US pelvic complete Ordering Provider: Vincent Robertson PROCEDURE: US PELVIC COMPLETE INDICATIONS: bilateral pelvic pain and right lower quadrant pain TECHNIQUE: Real-time scanning was performed of the pelvic organs, with image documentation. Additional endovaginal scanning was necessary due to incomplete visualization of the adnexal and endometrial structures by transabdominal scanning. COMPARISON: None. FINDINGS: Transabdominal scanning: Limited scanning through the kidneys shows no hydronephrosis. No pathologic free abdominal or pelvic fluid. Endovaginal scanning: Uterus: Uterus is normal in size at 6.6 x 2.2 x 4.0 cm. The endometrium measures 1 mm in combined thickness. Ovaries: Right ovary measures 2.2 x 1.5 x 1.4 cm. Left ovary measures 2.4 x 1.1 x 1.7 cm. The ovaries are unremarkable bilaterally IMPRESSION: Unremarkable examination as above. Dictated by: Carlos A Aguayo M.D. on 10/08/2018 at 20:57 Approved by: Carlos A Aguayo M.D. on 10/08/2018 at 20:58 CT scan - abdomen: Radiologist's impression: [place] [address] CT Scan Report Signed Patient: Katie Adams MMR#: [id number] : 1990Acct:[id number] Age/Sex: FDate of Service: 10/08/18 Loc: ED Accession Number: [id number] Procedure: CT abdomen pelvis w con Ordering Provider: Vincent Robertson PROCEDURE: CT ABDOMEN PELVIS W CON INDICATIONS: right lower quadrant pain TECHNIQUE: After the administration of oral and intravenous contrast, 5 mm thick sections acquired from the diaphragms to the symphysis. 5 mm thick coronal and sagittal reformats were performed. For radiation dose reduction, the following was used: automated exposure control, adjustment of mA and/or kV according to patient size. COMPARISON: None. FINDINGS: Image quality: Excellent. ABDOMEN: Lung bases: Lung bases are clear. Heart size is normal. Solid organs: Liver is normal in size and enhancement. Gallbladder grossly unremarkable. Biliary system is non-dilated. Pancreas enhances normally. Spleen is normal in size and enhancement. No adrenal nodules. Kidneys are normal in size and enhancement, without hydronephrosis. Peritoneum and bowel: Stomach, small bowel, and colon loops are normal in caliber and wall thickness. No free fluid or air. The appendix is within normal limits and seen on image 60 series 2 Nodes and vessels: No retroperitoneal or mesenteric adenopathy. Aorta and inferior vena cava are normal in caliber. Miscellaneous: No ventral hernias. PELVIS: Genitourinary: Bladder distended otherwise unremarkable. Miscellaneous: No inguinal hernias or adenopathy. Bones: No suspicious bony lesions. No vertebral body compression fractures. IMPRESSION: Normal appendix. No acute abnormality. Moderate stool. Dictated by: Carlos A Aguayo M.D. on 10/08/2018 at 21:36 Approved by: Carlos A Aguayo M.D. on 10/08/2018 at 21:38 MDM Narrative Medical decision making narrative: CT of the abdomen pelvis was obtained was negative for any acute findings. Ultrasound of the pelvis region was obtained and was also negative for any acute findings. CBC and Chem panel lipase were obtained were unremarkable. Urinalysis was negative for urinary tract infection and also . Intended to obtain a pelvic exam and obtain wet prep GC Chlamydia and culture and check for cervical tenderness and adnexal tenderness patient refused. differential between pelvic complications such as endometrio sis or infection. Will have her follow up with [facility] in the next few days for re- evaluation. Use [id number] Tylenol as needed for any discomfort. For any worsening symptoms return to the emergency room. <Kapil Younger, - Last Filed: 10/08/18 23:32> Lab Data Lab Results 10/08/18 10/08/18 Range/Units 20:00 20:00 WBC 10.7 (4.5-11.0) X10^3/uL RBC 4.01 (4.0-5.2) X10^6/uL Hgb 12.9 (12.0-16.0) g/dL Hct 37.7 (36-46) % MCV 93.9 (80-100) fL MCH 32.1 (26-34) PG MCHC 34.2 (30-36) % RDW 13.0 (11.6-14.8) % Plt Count 337 (150-400) X10^3/uL Neut % (Auto) 60.2 (50-75) % Lymph % (Auto) 30.3 (25-40) % Weber % (Auto) 7.7 (3-14) % Eos % (Auto) 1.2 L (2-4) % Baso % (Auto) 0.6 (0-2) % Neut # (Auto) 6400 (5228-9347) /uL Lymph # (Auto) 3200 (1033-4186) /uL Weber # (Auto) 800 (0-900) /uL Eos # (Auto) 100 (0-450) /uL Baso # (Auto) 100 (0-100) /uL Sodium 138 (137-145) mmol/L Potassium 4.1 (3.4-5.1) mmol/L Chloride 102 (98-107) mmol/L Carbon Dioxide 24 (22-32) mmol/L BUN 12 (7-17) mg/dL Creatinine 0.60 (0.52-1.04) mg/dL Estimated GFR > 60.0 (>60) mL/min BUN/Creatinine Ratio 20.0 (6-22) Glucose 83 (70-100) mg/dL Calcium 9.3 (8.4-10.2) mg/dL Total Bilirubin 0.3 (0.2-1.3) mg/dL AST 15 (14-36) IU/L ALT 24 (9-52) IU/L Alkaline Phosphatase 30 L (38-126) U/L Total Protein 7.6 (6.3-8.2) g/dL Albumin 4.6 (3.5-5.0) g/dL Globulin 3.0 (1.7-4.1) g/dL Albumin/Globulin Ratio 1.5 (1.0-2.8) Lipase 215 (23-300) U/L Point of Care Testing Test Results Negative Urine Dip Bedside Urine Glucose Negative Bedside Urine Bilirubin - Negative Bedside Urine Ketone - Negative Urine Specific [place] 1.015 Bedside Urine Occult Blood - Negative Bedside Urine pH 7.0 Bedside Urine Protein - Negative Bedside Urine Urobilinogen - Negative Bedside Urine Nitrite - Negative Bedside Urine Leukocytes - Negative Esterase Discharge Plan Departure Patient Disposition: Home Clinical Impression: Pelvic pain Discharge Date/Time: 10/08/18 22:07 Interventions: ED Discharge Assessment Last Done: 10/08/18 22:07 Instructions: DI for Pelvic Pain Activity Restrictions/Additional Instructions: ultrasound and abdominal CT were obtained and were unremarkable. Laboratory results today were also unremarkable. No emergent etiology of for your discomfort in the pelvic region is identified. Recommend following up with [facility] in the next couple days for re-evaluation. For any worsening symptoms return to the emergency room. Use [id number] Tylenol as needed for any discomfort. Prescriptions: No Action acetaminophen [Tylenol Extra Strength] 500 MG tablet PO Q6HP PRNQty: 0 RF: 0 ibuprofen 600 MG tablet 600 mg PO Q6HP PRN (Reason: pain) Qty: 0 RF: 0 dicyclomine 20 mg tablet 20 mg PO QID Qty: 45 RF: 0 pregabalin [Lyrica] 150 mg capsule 150 mg PO BID Qty: 60 RF: 0 ondansetron HCl [Zofran] 8 mg tablet 8 mg PO Q6H PRN (Reason: nausea) Qty: 30 RF: 5 diazepam 10 mg tablet 10 mg PO TID PRN (Reason: spasm) Qty: 45 RF: 0 albuterol sulfate [Ventolin HFA] 90 mcg/actuation HFA aerosol inhaler 2 puff INHALATION Q4HP PRN (Reason: shortness of breath or wheezing) Qty: 1 RF: 5 sertraline 100 mg tablet 100 mg PO DAILY Qty: 30 RF: 3 oxycodone-acetaminophen 5-325 mg tablet 1 tab PO Q4-6H PRN (Reason: pain) Qty: 10 RF: 0 levonorgestrel-ethinyl estrad [Gloria] 0.15-0.03 mg tablet 1 tab PO DAILY Qty: 28 RF: 11 Referrals: Pricila Eng DO [Primary Care Provider] - <Kapil Younger DO - Last Filed: 10/08/18 23:32> Cosign ED Attending Niraj Attestation: I was available for consultation during this patient's emergency department encounter
--- NOTE | 2018-10-08 21:29 | PC.NURSE ---
Pt requesting another dilaudid. Provider notified and stated Were just going to give her one right now.
--- NOTE | 2018-10-08 21:30 | PC.NURSE ---
Pt updated by RN that provider would like to do a pelvic exam, pt stated she has recently had one by Dr. Acosta and would prefer not to have another at this time by especially by a male provider and will follow up for a repeat pelvic exam if necessary with Dr. Acosta. ARGENIS harris.
[2018-10-08 22:01] VITALS: BP 115/71; PULSE 77; RESP 18; O2SAT 100
== END 2018-10-08 22:07 | disposition home or self-care (01) ==
PROVIDERS: Emergency Provider Nurse Practitioner Family; Family Provider Family Medicine; PCP Family Medicine
DX: R10.2 Pelvic and perineal pain (principal)
CPT/HCPCS: 36591; 74177; 76830; 76856; 80053; 81003; 81025; 83690; 85025; 96361; 96374; 96375; 99283; 99285; J1170; J2405; Q9967

== ENCOUNTER 2018-10-17 02:43 | Emergency (ER) | payer OTHER, MEDICAID, SELFPAY ==
[2018-10-17 02:57] VITALS: BP 136/73; PULSE 82; RESP 16; TEMP 37; O2SAT 100; BMI 20.1
[2018-10-17 03:00] VITALS: BP 115/85; PULSE 84; RESP 20; O2SAT 100
[2018-10-17 03:30] VITALS: BP 121/78; PULSE 85; RESP 22; O2SAT 100
[2018-10-17] MEDS: ONDANSETRON 4 MG/2 ML INJ IV (03:41)
[2018-10-17] MEDS: SODIUM CHLORIDE 0.9% 1,000 ML 1000 ML IV ×2 (03:42→06:34)
[2018-10-17 03:48] LABS: Hematocrit 33.6 % (36-46); Hemoglobin 11.6 g/dL (12.0-16.0); Mean Corpuscular HGB Conc 34.6 % (30-36); Mean Corpuscular Hemoglobin 32.4 PG (26-34); Mean Corpuscular Volume 93.8 fL (80-100); Platelet Count 246 X10^3/uL (150-400); Red Blood Cell Count 3.59 X10^6/uL (4.0-5.2); Red Cell Distribution Width 12.6 % (11.6-14.8)
[2018-10-17 03:49] LABS: Alanine Aminotransferase 25 IU/L (9-52); Albumin Globulin Ratio 1.4 (1.0-2.8); Alkaline Phosphatase 27 U/L (38-126); Aspartate Aminotransferase 19 IU/L (14-36); BUN Creatinine Ratio 33.3 (6-22); Bilirubin Total 0.2 mg/dL (0.2-1.3); Blood Urea Nitrogen 20 mg/dL (7-17); Calcium 8.6 mg/dL (8.4-10.2); Carbon Dioxide 22 mmol/L (22-32); Chloride 106 mmol/L (98-107); Estimated Glomerular Filt Rate > 60.0 mL/min (>60); Globulin 2.8 g/dL (1.7-4.1); Glucose 88 mg/dL (70-100); HEMOLYSIS < 15 (0-50); Potassium 3.5 mmol/L (3.4-5.1); Sodium 138 mmol/L (137-145); Total Protein 6.8 g/dL (6.3-8.2)
[2018-10-17 04:10] LABS: Neutrophils Absolute Manual 5300 /uL (3000-5900); RBC Morphology Normal Morphology; Total Cells Counted 100
--- NOTE | 2018-10-17 04:56 | ED_ITS ---
HPI - Abdominal Pain General Chief Complaint: Abdominal Pain Stated Complaint: abdominal pain Time Seen by Provider: 10/17/18 04:56 Source: patient Mode of arrival: ambulatory Limitations: no limitations History of Present Illness HPI narrative: the patient has a long history of abdominal pain. She has been evaluated for pelvic pain since she was a teenager. She has 8 & 9-year-old children. She has never had abdominal or pelvic surgery, other than laparoscopy in 2010. with her chronic pain there was no evidence of endometriosis. She has a history of ovarian cyst. She has had a flare of pain in the last couple weeks. Pelvic ultrasound at this facility and abdominal CT At [facility] are both normal. There is no current evidence of ovarian cyst. she has not been sexually active since May 2018. she has no history of STDs. She has abdominal cramping pain at this time, but no fever or chills. She has dysuria. She has no vaginal discharge recent evaluations have not revealed UTI findings. She has medications for depression. She also has dicyclomine for irritable bowel. She takes diazepam for the cramps. Her menstrual cycles are regular. She is on control pills due to the irregular menses and menstrual cramps. She is not taking the medications for control. she has frequent nausea, and has medications for nausea control and emesis control. She is not having diarrhea. She has no history of recurring diarrhea or bloody diarrhea. Currently, her abdominal pain is right mid abdominal pain. Her father in the age of 30 is developed abdominal pain that required colonoscopy. She described a situation highly suggestive of inflammatory bowel. Crohn's dis ease was suggested. Related Data Home Medications Medication Instructions Recorded Confirmed acetaminophen [Tylenol Extra 0 mg PO Q6HP PRN #0 10/01/17 09/22/18 Strength] ibuprofen 600 mg PO Q6HP PRN #0 10/01/17 09/22/18 Previous Rx's Medication Instructions Recorded albuterol sulfate HFA 90 2 puff INHALATION Q4HP PRN #1 inh 04/02/18 mcg/actuation aerosol inhaler dicyclomine 20 mg tablet 20 mg PO QID #45 tab 06/16/18 levonorgestrel 0.15 mg-ethinyl 1 tab PO DAILY #28 tab 08/04/18 estradiol 0.03 mg tablet pregabalin 150 mg capsule 150 mg PO BID #60 cap 08/13/18 sertraline 100 mg tablet 100 mg PO DAILY #30 tab 08/27/18 oxycodone-acetaminophen 5 mg-325 1 tab PO Q4-6H PRN #10 tab 09/22/18 mg tablet ondansetron HCl 8 mg tablet 8 mg PO Q6H PRN #30 tab 09/23/18 diazepam 10 mg tablet 10 mg PO TID PRN #45 tab 10/06/18 oxycodone-acetaminophen [Percocet] 1 tab PO Q6H PRN #10 tab 10/17/18 Allergies Allergy/AdvReac Type Severity Reaction Status Date / Time clindamycin [CLINDAMYCIN] Allergy Unknown Verified 09/22/18 15:31 codeine [CODEINE] Allergy Unknown Verified 09/22/18 15:31 gabapentin [GABAPENTIN] Allergy Unknown too Verified 09/22/18 15:31 sedating morphine [MORPHINE] Allergy Unknown Verified 09/22/18 15:31 tramadol [TRAMADOL] Allergy Unknown Verified 09/22/18 15:31 pain contract Allergy Unknown Uncoded 09/22/18 15:31 Review of Systems Review of Systems ROS Unobtainable: All systems reviewed & are unremarkable except as noted in HPI and below Constitutional Denies chills, Denies fever(s), Denies lethargy and Denies weakness ENT Ears, Nose, Mouth, and Throat: Denies change in voice, Denies vertigo, Denies neck pain and Denies sore throat Cardiovascular Denies chest pain, Denies irregular heart rhythm, Denies lightheadedness, Denies palpitations, Denies dyspnea, Denies dyspnea on exertion and Denies orthopnea Respiratory Denies cough, Denies dyspnea, Denies dyspnea on exertion and Denies wheezing Gastrointestinal Gastrointestinal: Reports abdominal pain ( Right mid abdomen), Denies change in bowel habits, Denies dyspepsia, Denies diarrhea, Denies loose stools, Denies nausea and Denies vomiting Genitourinary Reports as per HPI, Denies hematuria, Reports dysuria, Reports pelvic pain, Reports flank pain, Denies urinary incontinence, Denies urinary urgency and Denies vaginal discharge Musculoskeletal Denies back pain and Denies neck pain Integumentary/Breasts Denies pruritus, Denies erythema, Denies rash and Denies wounds Neurologic Denies confusion, Denies vertigo and Denies weakness Psychiatric Denies confusion Endocrine Denies palpitations Allergic/Immunologic Denies wheezing [facility] Medical History IBS (irritable bowel syndrome) (Chronic ~2007) Ovarian cyst (Chronic ~2009) Headache (Chronic ~1999) Anxiety and depression (Chronic) Abnormal Pap smear of cervix (Chronic) Acne (Chronic ~2012) Ankle pain (Chronic) Frequent UTI (Chronic) Human papillomavirus (Chronic ~2008) Lumbar strain (Chronic) Migraines (Chronic) PTSD (post-traumatic stress disorder) (Chronic) Painful menstrual periods (Chronic) Seasonal allergies (Chronic) Shoulder pain (Chronic) Chickenpox (Resolved ~1991) Surgical History History of delivery (Resolved) History of delivery (Resolved) History of laminectomy (Resolved ~06/09/97) History of microdiscectomy (Resolved) Anesthesia (Inactive) Status post laparoscopy (12/26/11) Family History Brother Age: 29 Hepatitis C Father Age: 49 Heart disease Mental health problem Heart attack Grandmother Breast cancer Grandfather Age: 77 Stroke Grandmother Age: 71 Heart attack Hepatitis C Lupus Social History Smoking Status: Current every day smoker Family History Brother Age: 29 Hepatitis C Father Age: 49 Heart disease Mental health problem Heart attack Grandmother Breast cancer Grandfather Age: 77 Stroke Grandmother Age: 71 Heart attack Hepatitis C Lupus Social History Smoking Status: Current every day smoker Exam Initial Vital Signs Initial Vital Signs: Vital Signs Temperature 98.6 F 10/17/18 02:57 Pulse Rate 82 10/17/18 02:57 Respiratory Rate 16 10/17/18 02:57 Blood Pressure 136/73 10/17/18 02:57 Pulse Oximetry 100 10/17/18 02:57 Const General: cooperative and well developed Nutritional Appearance: well nourished Orientation: alert, awake and oriented x3 Other: she is having spastic abdominal pain during the evaluation. [facility] Face and sinus: normal facial exam and sinuses nontender Throat: posterior oropharynx normal Eyes Sclera: sclerae normal ( No icterus) Chest Chest: normal inspection of the chest Resp Effort & Inspection: normal respiratory effort, able to speak in complete senten inocencio, no respiratory distress and no use of accessory muscles Auscultation: clear to auscultation bilaterally, no rales, no rhonchi and no wheezes Cardio Rate: regular rate Rhythm: regular rhythm Heart Sounds: no click, no gallops, no murmurs and no rubs Pulses: normal peripheral pulses GI Inspection: no edema, non-distended and no obesity Palpation: no hepatosplenomegaly and guarding ( right mid abdominal tenderness, no rebound. No lower abdominal tenderness) Back/Spine/Pelvis Back: CVA tenderness ( Bilateral discomfort.) Skin General: no rashes or lesions noted, No jaundice and No petechiae Neuro General: alert, oriented x3, gait normal and no focal motor deficits Speech: speech normal Extrem General: full ROM, no clubbing, cyanosis or edema, no pedal edema and no calf tenderness Course Orders Ordered: ED Orders 10/17/18 EKG-12 Lead Routine 10/17/18 03:30 Complete Blood Count MAN DIFF Stat Comprehensive Metabolic Panel Stat 10/17/18 06:36 Test Urine Stat Urine Drug Screen, Rapid Stat Discontinued Medications Hydromorphone HCl (Dilaudid) 1 mg IV NOW ONE Stop: 10/17/18 06:01 Last Admin: 10/17/18 06:33 Dose: 1 mg Sodium Chloride (Normal Saline 0.9%) 1,000 mls @ 1,000 mls/hr IV BOLUS ONE Stop: 10/17/18 04:36 Last Infusion: 10/17/18 06:04 Dose: 0 mls/hr Admin: 10/17/18 03:42 Dose: 1,000 mls/hr Sodium Chloride (Normal Saline 0.9%) 1,000 mls @ 1,000 mls/hr IV BOLUS ONE Stop: 10/17/18 07:09 Last Admin: 10/17/18 06:34 Dose: 1,000 mls/hr Ketorolac Tromethamine (Toradol) 30 mg IV NOW ONE Stop: 10/17/18 06:01 Last Admin: 10/17/18 06:13 Dose: 30 mg Ondansetron HCl (Zofran) 4 mg IV NOW ONE Stop: 10/17/18 03:37 Last Admin: 10/17/18 03:41 Dose: 4 mg Vital Signs - 8 hr 10/17/18 02:57 10/17/18 03:00 10/17/18 03:30 Temperature 98.6 F Pulse Rate 82 84 85 Respiratory Rate 16 20 22 Blood Pressure 136/73 Blood Pressure [Left Arm] 115/85 121/78 Pulse Oximetry 100 100 100 10/17/18 06:44 Temperature Pulse Rate 85 Respiratory Rate 16 Blood Pressure Blood Pressure [Left Arm] 130/89 Pulse Oximetry 100 MDM - Abdominal Pain Lab Data Result diagrams: 10/17/18 03:30 10/17/18 03:30 Lab Results 10/17/18 10/17/18 10/17/18 Range/Units 03:30 03:30 06:36 WBC 10.0 (4.5-11.0) X10^3/uL RBC 3.59 L (4.0-5.2) X10^6/uL Hgb 11.6 L (12.0-16.0) g/dL Hct 33.6 L (36-46) % MCV 93.8 (80-100) fL MCH 32.4 (26-34) PG MCHC 34.6 (30-36) % RDW 12.6 (11.6-14.8) % Plt Count 246 (150-400) X10^3/uL Total Counted 100 Seg Neutrophils % 53.0 (38-70) % Lymphocytes % (Manual) 40.0 (25-45) % Monocytes % (Manual) 5.0 (2-11) % Eosinophils % (Manual) 2.0 (2-4) % Neutrophils # (Manual) 5300 (7154-3955) /uL RBC Morphology Normal morphology Sodium 138 (137-145) mmol/L Potassium 3.5 (3.4-5.1) mmol/L Chloride 106 (98-107) mmol/L Carbon Dioxide 22 (22-32) mmol/L BUN 20 H (7-17) mg/dL Creatinine 0.60 (0.52-1.04) mg/dL Estimated GFR > 60.0 (>60) mL/min BUN/Creatinine Ratio 33.3 H (6-22) Glucose 88 (70-100) mg/dL Calcium 8.6 (8.4-10.2) mg/dL Total Bilirubin 0.2 (0.2-1.3) mg/dL AST 19 (14-36) IU/L ALT 25 (9-52) IU/L Alkaline Phosphatase 27 L (38-126) U/L Total Protein 6.8 (6.3-8.2) g/dL Albumin 4.0 (3.5-5.0) g/dL Globulin 2.8 (1.7-4.1) g/dL Albumin/Globulin Ratio 1.4 (1.0-2.8) Urine Test Negative (Negative) Urine Opiates Screen (Negative) Ur Oxycodone Screen (Negative) Urine Methadone Screen (Negative) Ur Barbiturates Screen (Negative) U Tricyclic Antidepress (Negative) Ur Phencyclidine Scrn (Negative) Ur Amphetamines Screen (Negative) U Methamphetamines Scrn (Negative) Ur MDMA Scrn (Ecstasy) (Negative) U Benzodiazepines Scrn (Negative) Urine Cocaine Screen (Negative) U Marijuana (THC) Screen (Negative) 10/17/18 Range/Units 06:36 WBC (4.5-11.0) X10^3/uL RBC (4.0-5.2) X10^6/uL Hgb (12.0-16.0) g/dL Hct (36-46) % MCV (80-100) fL MCH (26-34) PG MCHC (30-36) % RDW (11.6-14.8) % Plt Count (150-400) X10^3/uL Total Counted Seg Neutrophils % (38-70) % Lymphocytes % (Manual) (25-45) % Monocytes % (Manual) (2-11) % Eosinophils % (Manual) (2-4) % Neutrophils # (Manual) (0373-2916) /uL RBC Morphology Sodium (137-145) mmol/L Potassium (3.4-5.1) mmol/L Chloride (98-107) mmol/L Carbon Dioxide (22-32) mmol/L BUN (7-17) mg/dL Creatinine (0.52-1.04) mg/dL Estimated GFR (>60) mL/min BUN/Creatinine Ratio (6-22) Glucose (70-100) mg/dL Calcium (8.4-10.2) mg/dL Total Bilirubin (0.2-1.3) mg/dL AST (14-36) IU/L ALT (9-52) IU/L Alkaline Phosphatase (38-126) U/L Total Protein (6.3-8.2) g/dL Albumin (3.5-5.0) g/dL Globulin (1.7-4.1) g/dL Albumin/Globulin Ratio (1.0-2.8) Urine Test (Negative) Urine Opiates Screen Negative (Negative) Ur Oxycodone Screen Positive H (Negative) Urine Methadone Screen Negative (Negative) Ur Barbiturates Screen Negative (Negative) U Tricyclic Antidepress Negative (Negative) Ur Phencyclidine Scrn Negative (Negative) Ur Amphetamines Screen Negative (Negative) U Methamphetamines Scrn Negative (Negative) Ur MDMA Scrn (Ecstasy) Negative (Negative) U Benzodiazepines Scrn Positive H (Negative) Urine Cocaine Screen Negative (Negative) U Marijuana (THC) Screen Negative (Negative) Point of care testing: Point of Care Testing Test Results Negative Urine Dip Bedside Urine Glucose Negative Bedside Urine Bilirubin - Negative Bedside Urine Ketone - Negative Urine Specific [place] 1.015 Bedside Urine Occult Blood - Negative Bedside Urine pH 7.0 Bedside Urine Protein +/- 15 Bedside Urine Urobilinogen - Negative Bedside Urine Nitrite - Negative Bedside Urine Leukocytes - Negative Esterase MDM Narrative Medical decision making narrative: The patient is in less pain after receiving the medications. However, she is not pain free. There still was a spasmodic element to the pain she has experienced in the right mid abdomen. She will be referred to surgery for an opinion about abdominal pain and possible colonoscopy. Her father is scheduled for another colonoscopy, the history is unclear but suggests Inflammatory bowel. Discharge Plan Departure Patient Disposition: Home Clinical Impression: Abdominal pain Qualifiers: Abdominal location: upper abdomen, unspecified Qualified Code(s): R10.10 - Upper abdominal pain, unspecified Instructions: DI for Abdominal Pain-Adult Activity Restrictions/Additional Instructions: continue with her current medications. Add Percocet every 6 hr as needed for pain control. I am going to give you contact information for 1 of our local surgeons, Dr. Lamb. Contact Dr. Lamb for an appointment, he can provide insight to your abdominal pain and consider colonoscopy. Prescriptions: New oxycodone-acetaminophen [Percocet] 5-325 mg tablet 1 tab PO Q6H PRN (Reason: pain) Qty: 10 RF: 0 No Action acetaminophen [Tylenol Extra Strength] 500 MG tablet PO Q6HP PRNQty: 0 RF: 0 ibuprofen 600 MG tablet 600 mg PO Q6HP PRN (Reason: pain) Qty: 0 RF: 0 dicyclomine 20 mg tablet 20 mg PO QID Qty: 45 RF: 0 pregabalin [Lyrica] 150 mg capsule 150 mg PO BID Qty: 60 RF: 0 ondansetron HCl [Zofran] 8 mg tablet 8 mg PO Q6H PRN (Reason: nausea) Qty: 30 RF: 5 diazepam 10 mg tablet 10 mg PO TID PRN (Reason: spasm) Qty: 45 RF: 0 albuterol sulfate [Ventolin HFA] 90 mcg/actuation HFA aerosol inhaler 2 puff INHALATION Q4HP PRN (Reason: shortness of breath or wheezing) Qty: 1 RF: 5 sertraline 100 mg tablet 100 mg PO DAILY Qty: 30 RF: 3 oxycodone-acetaminophen 5-325 mg tablet 1 tab PO Q4-6H PRN (Reason: pain) Qty: 10 RF: 0 levonorgestrel-ethinyl estrad [Gloria] 0.15-0.03 mg tablet 1 tab PO DAILY Qty: 28 RF: 11 Referrals: Shiva Lamb MD [Physician] - Pricila Eng DO [Primary Care Provider] -
[2018-10-17] MEDS: KETOROLAC 60 MG/2 ML VIAL 30 MG IV (06:13)
[2018-10-17] MEDS: HYDROMORPHONE 1 MG INJ IV (06:33)
[2018-10-17 06:44] VITALS: BP 130/89; PULSE 85; RESP 16; O2SAT 100
[2018-10-17 07:01] LABS: Pregnancy Test Urine Negative (Negative); Urine Tetrahydrocannabinol Negative (Negative)
[2018-10-17 07:02] LABS: Urine Amphetamines Negative (Negative); Urine Barbiturates Negative (Negative); Urine Benzodiazepines Positive (Negative); Urine Cocaine Negative (Negative); Urine MDMA Negative (Negative); Urine Methadone Negative (Negative); Urine Methamphetamines Negative (Negative); Urine Morphine/Opi cutoff 2000 Negative (Negative); Urine Oxycodone Positive (Negative); Urine Phencyclidine Negative (Negative); Urine Tricyclic Antidepressant Negative (Negative)
== END 2018-10-17 07:46 | disposition home or self-care (01) ==
PROVIDERS: Emergency Provider Emergency Medicine; Family Provider Family Medicine; PCP Family Medicine
DX: R10.10 Upper abdominal pain, unspecified (principal)
CPT/HCPCS: 36591; 80053; 80305; 81003; 81025; 85025; 93005; 96361; 96374; 96375; 99284; J1170; J1885; J2405

== ENCOUNTER 2018-11-09 08:04 | Day surgery (SDC) | payer OTHER, MEDICAID, SELFPAY ==
[2018-11-09] VITALS (7 sets, daily range): BP systolic 110–124; BP diastolic 78–90; PULSE 68–95; RESP 14–18; TEMP 36.1–36.6; O2SAT 100; BMI 18.9
--- NOTE | 2018-11-09 | PATH_ITS ---
[facility] Accession Number: [id number] . 01 Material submitted: . LEFT COLON POLYP AT 40 . 02 Diagnosis: Left Colon At 40 CM, Polyp: Colonic mucosa with no diagnostic abnormality, consistent with polypoid redundancy. Negative for serrated lesion, dysplasia or malignancy. I/11/10/2018 . 02 Electronically signed: . Tre Montague MD, PhD, Pathologist NPI- [id number] . 01 Gross description: . Received in one formalin-filled container, labeled with the patient's name and labeled left colon polyp at 40, are two 0.2-0.4 cm portions of tissue, entirely submitted in one cassette. ([id number]) /FRR . 02 Pathologist provided ICD-10: K63.5 . 02 CPT . 702246 Performed at: 01 [facility] [address] [facility], [place], [place] [id number] MD Sam Cleary MD Phone: [phone] Performed at: 02 [facility] [address] [place], [place] [id number] MD Ana Laura Dao MD Phone: [phone]
[2018-11-09] MEDS: LACTATED RINGERS 1,000 ML 42 ML IV (08:25)
--- NOTE | 2018-11-09 09:07 | PM.PREOP ---
Pre-operative Note Interval Note History & Physical reviewed/Exam performed by Physician: Yes Changes to H&P: No H&P completed within 30 days and has changed as indicated here:: Patient seen and examined. History physical examination has not changed since her initial evaluation within the last 2-3 weeks. Proceed with colonoscopy today as planned. she requires anesthesia given her significant chronic pain issues, narcotic requirements at baseline, and significant anxiety.
--- NOTE | 2018-11-09 09:45 | SUR.OPER ---
GLASSES TO PACU WITH PATIENT
--- NOTE | 2018-11-09 10:00 | PM.OP.1 ---
Operative Date/Time/Diagnoses Date of procedure: 11/09/18 Time of procedure: 10:00 Pre-op diagnosis: right-sided abdominal pain Post-op diagnosis: other (Normal colon, rectum, and terminal ileum with no clear etiology of abdominal pain) Procedure & Clinicians Procedure: Colonoscopy with cold forceps polypectomy Same procedure as scheduled: Yes Indications: 27-year-old female with complicated medical and surgical history who presented with intractable right-sided abdominal pain. Extensive evaluation as an outpatient and through the emergency department showed no evidence of any obvious pathology. She was recommended to undergo colonoscopy. Because of her significant comorbid medical conditions and significant opioid requirements for chronic back pain she require general anesthesia. Surgeon: Shiva Lamb Click Yes if Unassisted: Yes Anesthesia Type: General Operative Notes Findings: 1. No evidence of colitis of any kind 2. No evidence of Clostridium difficile colitis or pseudomembranes 3. Normal well perfused healthy colonic mucosa throughout the entire colon and rectum 4. Completely normal terminal ileum without evidence of inflammation or other abnormalities 5. Small apparent polyp in the transverse colon removed with cold forceps 6. No evidence of neoplastic disease of clinical significance 7. No evidence of diverticulosis or strictures Closure Type: not applicable Specimen(s): other (Transverse colon polyp at 40 cm) Estimated Blood Loss (mL): 5 Blood products transfused: none Procedure in detail: After obtaining informed consent, patient was brought to the operating room left supine on the gurney. After satisfactory induction of anesthesia she was placed left lateral decubitus position. A time out was held per SCOAP protocol. A digital rectal examination was performed and did not reveal any masses or obstructing lesions. The colonoscope was gently passed into the patient's anus and the entire colon navigated to the level of the cecum with minimal difficulty. Terminal ileum was intubated and noted to be grossly normal. Once in the cecum, the scope was withdrawn being sure to go before and beyond all mucosal folds and prominences and get an excellent examination. The findings are noted above. Multiple photographs were taken, but unfortunately they did not print and are not available at the time of this dictation for the chart. At the level of the rectal vault, the scope was retroflexed and the internal anal canal was examined. The scope was straightened and air aspirated from the colon. The instrument was removed from the patient's body and the procedure was concluded. The patient was allowed to awaken from sedation without difficulty and taken to the post-anesthesia care unit in good condition. Complications: none Condition: stable Disposition: PACU Plan for aftercare: 1. Discharge home 2. No evidence of colorectal pathology to explain right-sided abdominal pain 3. Recommend follow-up with spine surgeon
[2018-11-09] MEDS: OXYCODONE/ACETAMINOPHEN 5/325 TABLET 1 TAB PO (10:10)
--- NOTE | 2018-11-09 10:34 | SUR.PHASEII ---
Talking on phone, waiting for mother to arrive. Facial grimace with abdominal discomfort. Discusses positions of comfort to facilitate passing of air. Pt. aware, states grandmother is a nurse and told her. Tolerating juice well.
--- NOTE | 2018-11-09 10:54 | SUR.PHASEII ---
1281 Mom and daughter present, assisted patient in dressing. No moaning, is smiling, talking. To home.
== END 2018-11-09 10:54 | disposition home or self-care (01) ==
LOC: OR 08:06
PROVIDERS: Family Provider Family Medicine; PCP Family Medicine; Visit Provider Surgery
PROC: 0DJD8ZZ Inspection of Lower Intestinal Tract, Via Natural or Artificial Opening Endoscopic (ICD-10-PCS; CPT 45378; principal; 2018-11-09 09:15)
DX: R10.31 Right lower quadrant pain (principal); D12.3 Benign neoplasm of transverse colon; F17.210 Nicotine dependence, cigarettes, uncomplicated; M54.9 Dorsalgia, unspecified; G89.29 Other chronic pain; K58.9 Irritable bowel syndrome, unspecified; F41.9 Anxiety disorder, unspecified; F32.9 Major depressive disorder, single episode, unspecified
CPT/HCPCS: 45380; J1100; J2405; J2704; J3010

== ENCOUNTER → 2018-12-17 11:53 | Outpatient (CLI) | payer OTHER, MEDICAID, SELFPAY ==
--- NOTE | 2018-12-17 11:55 | DI.MRI.S_ITS ---
PROCEDURE: MR HEAD/BRAIN WO CON INDICATIONS: Daily headaches and visual disturbance TECHNIQUE: Noncontrast axial T1 spin echo, axial T2 fast spin echo, sagittal and axial FLAIR, coronal T2 fast spin echo, axial gradient echo, axial diffusion and ADC through the brain. COMPARISON: [facility], CT, HEAD WITHOUT CONTRAST, 12/24/2016, 19:40. FINDINGS: Image quality: Diagnostic, with note made of motion artifact. CSF Spaces: Basal cisterns are patent. No extra-axial fluid collections. Ventricles are normal in size and shape. Brain: No intracranial masses or hemorrhage. Contreras/white matter interface is normal. Brainstem appears normal. Diffusion-weighted images demonstrate no acute ischemic insult. No chronic ischemic insults. Normal intravascular flow voids are present. Skull and face: Calvarium has normal marrow signal. Orbits appear normal. Sinuses: Sinuses and mastoids are clear. IMPRESSION: No significant intracranial abnormality is seen. No imaging explanation is found for this patient's presenting history of headache and visual disturbance. Dictated by: Jesús Subramanian M.D. on 12/17/2018 at 12:30 Approved by: Jesús Subramanian M.D. on 12/17/2018 at 12:31
== END ==
PROVIDERS: PCP Family Medicine; Visit Provider Specialist
DX: G44.52 New daily persistent headache (NDPH) (principal); H53.9 Unspecified visual disturbance
CPT/HCPCS: 70551

== ENCOUNTER 2018-12-24 20:43 | Emergency (ER) | payer OTHER, MEDICAID, SELFPAY ==
[2018-12-24 20:51] VITALS: BP 108/75; PULSE 122; RESP 12; TEMP 36.6; O2SAT 100; BMI 19.7
--- NOTE | 2018-12-24 21:17 | ED_ITS ---
HPI - Female Genitourinary <Lana Snyder PA-C - Last Filed: 12/24/18 22:41> General Chief complaint: Urogenital-Female Stated complaint: FEVER,BLADDER PROBLEMS Time Seen by Provider: 12/24/18 20:44 Source: patient Mode of arrival: ambulatory Limitations: no limitations History of Present Illness HPI Narrative: This 28-year-old female comes to ED secondary to concern for possible UTI. She states that she has had increased urgency and frequency for about a week, then for the last couple of days started to notice pain at the end of her urinary stream. She thinks that she has had some fever because she has had intermittent chills and sweats, but has not taken her temperature. She denies any vomiting, states she has some nausea at baseline with poor appetite and takes Zofran for this as she has GI issues, but symptoms unchanged from baseline. She states that she has chronic thoracic and lumbar pain and cannot tell whether this is any worse. She takes regular pain medication for this. She states that she is on continuous OCP, denies possibility of . She does have history of ovarian cysts but this pain does not feel quite typical. She denies any chest pain or dyspnea. She denies any new rash. She states she has some pain in her right leg which is typical with her back pain. she denies any new swelling in the extremities. she denies any vaginal discharge or STD concerns, not sexually active recently. She states that she has some increased back pain secondary to not taking her back pain medication for the last few hours and riding here in the car. She thinks that is the reason for her increased pulse. She normally takes Percocet at home up to 4 times daily, last dose was this morning. She would like a dose of this here, states she does not want a prescription due to her pain contract. She has seen a urologist in the past and felt she could possibly have interstitial cystitis Related Data Home Medications Medication Instructions Recorded Confirmed ibuprofen 600 mg PO Q6HP PRN #0 10/01/17 11/29/18 Previous Rx's Medication Instructions Recorded albuterol sulfate HFA 90 2 puff INHALATION Q4HP PRN #1 inh 04/02/18 mcg/actuation aerosol inhaler levonorgestrel 0.15 mg-ethinyl 1 tab PO DAILY #28 tab 08/04/18 estradiol 0.03 mg tablet pregabalin 150 mg capsule 150 mg PO BID #60 cap 08/13/18 sertraline 100 mg tablet 100 mg PO DAILY #30 tab 08/27/18 simethicone 125 mg capsule 125 mg PO .COMPLEX #2 cap 10/25/18 ondansetron HCl 8 mg tablet 8 mg PO Q6H PRN #30 tab 10/27/18 rizatriptan 10 mg tablet 10 mg PO .COMPLEX PRN #6 tab 11/29/18 zonisamide 100 mg capsule 100 mg PO .COMPLEX #60 cap 11/29/18 zonisamide 25 mg capsule 25 mg PO DAILY #24 cap 11/29/18 dicyclomine 20 mg tablet 20 mg PO QID PRN #30 tab 12/16/18 oxycodone-acetaminophen 5 mg-325 1 tab PO Q6H PRN #90 tab 12/16/18 mg tablet Allergies Allergy/AdvReac Type Severity Reaction Status Date / Time gabapentin [GABAPENTIN] Allergy Mild too Verified 11/29/18 11:01 sedating codeine [CODEINE] Allergy Unknown stomach Verified 11/29/18 11:01 cramps clindamycin [CLINDAMYCIN] AdvReac Intermediate severe Verified 11/29/18 11:01 heartburn, bloating morphine [MORPHINE] AdvReac Intermediate Severe Verified 11/29/18 11:01 stomach cramps, vomiting tramadol [TRAMADOL] AdvReac Unknown vertigo, Verified 11/29/18 11:01 projectile vomiting pain contract Allergy Unknown Uncoded 11/29/18 11:01 Review of Systems <Lana Snyder PA-C - Last Filed: 12/24/18 22:41> Review of Systems ROS Unobtainable: All systems reviewed & are unremarkable except as noted in HPI and below PFSH <Lana Snyder PA-C - Last Filed: 12/24/18 22:41> Medical History IBS (irritable bowel syndrome) (Chronic ~2007) Ovarian cyst (Chronic ~2009) Headache (Chronic ~1999) Anxiety and depression (Chronic) Abnormal Pap smear of cervix (Chronic) Acne (Chronic ~2012) Ankle pain (Chronic) Frequent UTI (Chronic) Human papillomavirus (Chronic ~2008) Lumbar strain (Chronic) Migraines (Chronic) PTSD (post-traumatic stress disorder) (Chronic) Painful menstrual periods (Chronic) Seasonal allergies (Chronic) Shoulder pain (Chronic) Chickenpox (Resolved ~1991) Social History household members: children Smoking Status: Current every day smoker Exam <Lana Snyder PA-C - Last Filed: 12/24/18 22:41> Narrative Exam Narrative: GENERAL APPEARANCE: Patient sitting comfortably, in no distress. HEENT: PERRL, EOMI, normal oropharynx NECK: Supple LUNGS: Clear to auscultation bilaterally. HEART: Rate and rhythm regular without murmur, normal S1 and S2, no S3 or S4. Pulse 102 on my check ABDOMEN: Soft, ND, +BS x 4 quadrants. +suprapubic tenderness, bilateral CVAT, more on the right EXTREMITIES: No edema DERMATOLOGIC: No exanthem Initial Vital Signs Initial Vital Signs: Vital Signs Temperature 97.9 F 12/24/18 20:51 Pulse Rate 122 H 12/24/18 20:51 Respiratory Rate 12 12/24/18 20:51 Blood Pressure 108/75 12/24/18 20:51 Pulse Oximetry 100 12/24/18 20:51 <Kapil Younger DO - Last Filed: 12/25/18 01:35> Initial Vital Signs Initial Vital Signs: Vital Signs Temperature 97.9 F 12/24/18 20:51 Pulse Rate 122 H 12/24/18 20:51 Respiratory Rate 12 12/24/18 20:51 Blood Pressure 108/75 12/24/18 20:51 Pulse Oximetry 100 12/24/18 20:51 Course <Lana Snyder PA-C - Last Filed: 12/24/18 22:41> Additional Information: Patient has not had significant improvement in pain after Toradol. One Percocet was ordered as she usually takes this at home but has not had since this morning. Review preliminary ultrasound finding and lab work. No evidence of acute infection, new ovarian cyst or kidney stone. She is agreeable with discharge home and follow up with her PCP. She agrees to return if any acutely worsening symptoms over the weekend or new symptoms such as vomiting. Reviewed findings with Dr. Younger who is agreeable with d/c and will check final US report later this evening to ensure no discrepancies Orders Ordered: ED Orders 12/24/18 21:10 Urine Microscopic Stat 12/24/18 21:43 US pelvic complete Stat 12/24/18 21:55 Complete Blood Count AUTO DIFF Stat Comprehensive Metabolic Panel Stat Discontinued Medications Ketorolac Tromethamine (Toradol) 60 mg IM NOW ONE Stop: 12/24/18 21:13 Last Admin: 12/24/18 21:21 Dose: 60 mg Oxycodone/Acetaminophen (Percocet 5/325) 1 tab PO NOW ONE Stop: 12/24/18 22:04 Last Admin: 12/24/18 22:22 Dose: 1 tab Vital Signs - 8 hr 12/24/18 20:51 12/24/18 22:44 Temperature 97.9 F Pulse Rate 122 H 81 Respiratory Rate 12 17 Blood Pressure 108/75 Blood Pressure [Right Arm] 123/85 Pulse Oximetry 100 99 <Kapil Younger DO - Last Filed: 12/25/18 01:35> Orders Ordered: ED Orders 12/24/18 21:10 Urine Microscopic Stat 12/24/18 21:43 US pelvic complete Stat 12/24/18 21:55 Complete Blood Count AUTO DIFF Stat Comprehensive Metabolic Panel Stat Discontinued Medications Ketorolac Tromethamine (Toradol) 60 mg IM NOW ONE Stop: 12/24/18 21:13 Last Admin: 12/24/18 21:21 Dose: 60 mg Oxycodone/Acetaminophen (Percocet 5/325) 1 tab PO NOW ONE Stop: 12/24/18 22:04 Last Admin: 12/24/18 22:22 Dose: 1 tab Vital Signs - 8 hr 12/24/18 20:51 12/24/18 22:44 Temperature 97.9 F Pulse Rate 122 H 81 Respiratory Rate 12 17 Blood Pressure 108/75 Blood Pressure [Right Arm] 123/85 Pulse Oximetry 100 99 MDM - Female Genitourinary <Lnaa Snyder PA-C - Last Filed: 12/24/18 22:41> Lab Data Result diagrams: 12/24/18 21:55 12/24/18 21:55 Lab Results 12/24/18 12/24/18 12/24/18 Range/Units 21:10 21:55 21:55 WBC 13.8 H (4.5-11.0) X10^3/uL RBC 4.48 (4.0-5.2) X10^6/uL Hgb 14.2 (12.0-16.0) g/dL Hct 41.7 (36-46) % MCV 93.1 (80-100) fL MCH 31.7 (26-34) PG MCHC 34.0 (30-36) % RDW 13.3 (11.6-14.8) % Plt Count 296 (150-400) X10^3/uL Neut % (Auto) 73.5 (50-75) % Lymph % (Auto) 18.4 L (25-40) % Eagle % (Auto) 6.9 (3-14) % Eos % (Auto) 0.8 L (2-4) % Baso % (Auto) 0.4 (0-2) % Neut # (Auto) 24920 H (5639-6500) /uL Lymph # (Auto) 2500 (6652-1435) /uL Eagle # (Auto) 1000 H (0-900) /uL Eos # (Auto) 100 (0-450) /uL Baso # (Auto) 100 (0-100) /uL Sodium 140 (137-145) mmol/L Potassium 4.1 (3.4-5.1) mmol/L Chloride 104 (98-107) mmol/L Carbon Dioxide 25 (22-32) mmol/L BUN 15 (7-17) mg/dL Creatinine 0.60 (0.52-1.04) mg/dL Estimated GFR > 60.0 (>60) mL/min BUN/Creatinine Ratio 25.0 H (6-22) Glucose 87 (70-100) mg/dL Calcium 9.9 (8.4-10.2) mg/dL Total Bilirubin 0.3 (0.2-1.3) mg/dL AST 17 (14-36) IU/L ALT 11 (9-52) IU/L Alkaline Phosphatase 32 L (38-126) U/L Total Protein 8.3 H (6.3-8.2) g/dL Albumin 4.8 (3.5-5.0) g/dL Globulin 3.5 (1.7-4.1) g/dL Albumin/Globulin Ratio 1.4 (1.0-2.8) Urine RBC 1-5/hpf (0-5/HPF) Urine WBC None seen (0-5/HPF) Ur Squamous Epith Cells 0-1 /hpf (0-5/HPF) Urine Bacteria Few (2-10) H (None) Ur Culture Indicated? Cult not indicated Point of Care Testing Test Results Negative Urine Dip Bedside Urine Glucose Negative Bedside Urine Bilirubin - Negative Bedside Urine Ketone +/- 5 Urine Specific [place] 1.025 Bedside Urine Occult Blood + Bedside Urine pH 7.0 Bedside Urine Protein +/- 15 Bedside Urine Urobilinogen +/- 1mg Bedside Urine Nitrite - Negative Bedside Urine Leukocytes - Negative Esterase <Kapil Younger DO - Last Filed: 12/25/18 01:35> Lab Data Lab Results 12/24/18 12/24/18 12/24/18 Range/Units 21:10 21:55 21:55 WBC 13.8 H (4.5-11.0) X10^3/uL RBC 4.48 (4.0-5.2) X10^6/uL Hgb 14.2 (12.0-16.0) g/dL Hct 41.7 (36-46) % MCV 93.1 (80-100) fL MCH 31.7 (26-34) PG MCHC 34.0 (30-36) % RDW 13.3 (11.6-14.8) % Plt Count 296 (150-400) X10^3/uL Neut % (Auto) 73.5 (50-75) % Lymph % (Auto) 18.4 L (25-40) % Eagle % (Auto) 6.9 (3-14) % Eos % (Auto) 0.8 L (2-4) % Baso % (Auto) 0.4 (0-2) % Neut # (Auto) 98570 H (1735-3851) /uL Lymph # (Auto) 2500 (9421-0874) /uL Eagle # (Auto) 1000 H (0-900) /uL Eos # (Auto) 100 (0-450) /uL Baso # (Auto) 100 (0-100) /uL Sodium 140 (137-145) mmol/L Potassium 4.1 (3.4-5.1) mmol/L Chloride 104 (98-107) mmol/L Carbon Dioxide 25 (22-32) mmol/L BUN 15 (7-17) mg/dL Creatinine 0.60 (0.52-1.04) mg/dL Estimated GFR > 60.0 (>60) mL/min BUN/Creatinine Ratio 25.0 H (6-22) Glucose 87 (70-100) mg/dL Calcium 9.9 (8.4-10.2) mg/dL Total Bilirubin 0.3 (0.2-1.3) mg/dL AST 17 (14-36) IU/L ALT 11 (9-52) IU/L Alkaline Phosphatase 32 L (38-126) U/L Total Protein 8.3 H (6.3-8.2) g/dL Albumin 4.8 (3.5-5.0) g/dL Globulin 3.5 (1.7-4.1) g/dL Albumin/Globulin Ratio 1.4 (1.0-2.8) Urine RBC 1-5/hpf (0-5/HPF) Urine WBC None seen (0-5/HPF) Ur Squamous Epith Cells 0-1 /hpf (0-5/HPF) Urine Bacteria Few (2-10) H (None) Ur Culture Indicated? Cult not indicated Point of Care Testing Test Results Negative Urine Dip Bedside Urine Glucose Negative Bedside Urine Bilirubin - Negative Bedside Urine Ketone +/- 5 Urine Specific [place] 1.025 Bedside Urine Occult Blood + Bedside Urine pH 7.0 Bedside Urine Protein +/- 15 Bedside Urine Urobilinogen +/- 1mg Bedside Urine Nitrite - Negative Bedside Urine Leukocytes - Negative Esterase Discharge Plan Departure Patient Disposition: Home Clinical Impression: Pelvic pain, Urinary urgency Discharge Date/Time: 12/24/18 23:40 Interventions: ED Discharge Assessment Last Done: 12/24/18 23:37 Instructions: DI for Pelvic Pain Activity Restrictions/Additional Instructions: There was no clear source for your pelvic pain and urinary symptoms found on your testing today. We will phone you if the radiologist sees any different findings than I reviewed with you from the instructional media services technician report. We have given you and anti-inflammatory injection to see if this helps your pain. You should also continue usual medications for your back pain. you should return here as we discussed if you have any acutely worsening symptoms, or new symptoms such as vomiting this weekend. Otherwise, please contact your PCP on Thursday and let her office know that you were seen here and we would like you to follow up on Thursday. Please discuss whether to see a urologist again to determine whether you may have interstitial cystitis for sure since that was brought up in the past. You could also have overactive bladder, and your corrected that all of these urinary symptoms could be exacerbated by your back and intestinal issues. Prescriptions: No Action ibuprofen 600 MG tablet 600 mg PO Q6HP PRN (Reason: pain) Qty: 0 RF: 0 pregabalin [Lyrica] 150 mg capsule 150 mg PO BID Qty: 60 RF: 0 ondansetron HCl [Zofran] 8 mg tablet 8 mg PO Q6H PRN (Reason: nausea) Qty: 30 RF: 5 albuterol sulfate [Ventolin HFA] 90 mcg/actuation HFA aerosol inhaler 2 puff INHALATION Q4HP PRN (Reason: shortness of breath or wheezing) Qty: 1 RF: 5 sertraline 100 mg tablet 100 mg PO DAILY Qty: 30 RF: 3 levonorgestrel-ethinyl estrad [Gloria 28] 0.15-0.03 mg tablet 1 tab PO DAILY Qty: 28 RF: 11 oxycodone-acetaminophen [Percocet] 5-325 mg tablet 1 tab PO Q6H PRN (Reason: pain) Qty: 90 RF: 0 dicyclomine 20 mg tablet 20 mg PO QID PRN (Reason: IBS) Qty: 30 RF: 0 simethicone [Gas-X Extra Strength] 125 mg capsule 125 mg PO .COMPLEX Qty: 2 RF: 0 rizatriptan 10 mg tablet 10 mg PO .COMPLEX PRN (Reason: migraine headache) Qty: 6 RF: 11 zonisamide 100 mg capsule 100 mg PO .COMPLEX Qty: 60 RF: 5 zonisamide 25 mg capsule 25 mg PO DAILY Qty: 24 RF: 0 Referrals: Pricila Eng DO [Primary Care Provider] - <Kapil Younger DO - Last Filed: 12/25/18 01:35> [facility]: I was available for consultation during this patient's emergency department encounter
[2018-12-24] MEDS: KETOROLAC 60 MG/2 ML VIAL IM (21:21)
[2018-12-24 21:25] LABS: Bacteria Urine Few (2-10); Culture Indicated Urine Cult Not Indicated; RBC Urine 1-5/HPF (0-5/HPF); Squamous Epithelial Cell Urine 0-1 /HPF (0-5/HPF); WBC Urine None Seen (0-5/HPF)
--- NOTE | 2018-12-24 21:43 | DI.US.S_ITS ---
PROCEDURE: US PELVIC COMPLETE INDICATIONS: PAIN; HISTORY OVARIAN CYSTS TECHNIQUE: Real-time scanning was performed of the pelvic organs, with image documentation. Additional endovaginal scanning was necessary due to incomplete visualization of the adnexal and endometrial structures by transabdominal scanning. COMPARISON: [facility], , US PELVIC COMPLETE, 10/08/2018, 20:22. FINDINGS: Transabdominal scanning: Limited scanning through the kidneys shows no hydronephrosis. No pathologic free abdominal or pelvic fluid. Endovaginal scanning: Uterus: Uterus is normal in size at 7.0 x 3.1 x 3.9 cm. The endometrium measures 0.4 cm in combined thickness. Ovaries: The right ovary measures 1.5 x 2.8 x 1.5 cm and the left ovary measures 3.0 x 1.2 x 0.9 cm. No adnexal mass lesions identified. There are small bilateral ovarian follicles without focal dominant cysts. There is patent arterial flow demonstrated within the ovaries. IMPRESSION: 1. No adnexal masses or dominant ovarian cysts. 2. No evidence of ovarian torsion. Dictated by: Sam Urena M.D. on 12/25/2018 at 8:53 Approved by: Sam Urena M.D. on 12/25/2018 at 8:55
[2018-12-24 22:04] LABS: Add Manual Diff / Slide Review NO; Basophils Absolute Auto 100 /uL (0-100); Basophils Percent Auto 0.4 % (0-2); Eosinophils Absolute Auto 100 /uL (0-450); Eosinophils Percent Auto 0.8 % (2-4); Hematocrit 41.7 % (36-46); Hemoglobin 14.2 g/dL (12.0-16.0); Lymphocytes Absolute Auto 2500 /uL (1100-4500); Lymphocytes Percent Auto 18.4 % (25-40); Mean Corpuscular Hemoglobin 31.7 PG (26-34); Mean Corpuscular Volume 93.1 fL (80-100); Monocytes Absolute Auto 1000 /uL (0-900); Monocytes Percent Auto 6.9 % (3-14); Neutrophils Absolute Auto 10100 /uL (1500-7000); Neutrophils Percent Auto 73.5 % (50-75); Platelet Count 296 X10^3/uL (150-400); Red Blood Cell Count 4.48 X10^6/uL (4.0-5.2); Red Cell Distribution Width 13.3 % (11.6-14.8); White Blood Cell Count 13.8 X10^3/uL (4.5-11.0)
[2018-12-24 22:12] LABS: Alanine Aminotransferase 11 IU/L (9-52); Albumin 4.8 g/dL (3.5-5.0); Albumin Globulin Ratio 1.4 (1.0-2.8); Alkaline Phosphatase 32 U/L (38-126); Aspartate Aminotransferase 17 IU/L (14-36); Bilirubin Total 0.3 mg/dL (0.2-1.3); Blood Urea Nitrogen 15 mg/dL (7-17); Calcium 9.9 mg/dL (8.4-10.2); Carbon Dioxide 25 mmol/L (22-32); Chloride 104 mmol/L (98-107); Estimated Glomerular Filt Rate > 60.0 mL/min (>60); Globulin 3.5 g/dL (1.7-4.1); Glucose 87 mg/dL (70-100); HEMOLYSIS < 15 (0-50); Potassium 4.1 mmol/L (3.4-5.1); Sodium 140 mmol/L (137-145); Total Protein 8.3 g/dL (6.3-8.2)
[2018-12-24] MEDS: OXYCODONE/ACETAMINOPHEN 5/325 TABLET 1 TAB PO (22:22)
[2018-12-24 22:44] VITALS: BP 123/85; PULSE 81; RESP 17; O2SAT 99
== END 2018-12-24 23:40 | disposition home or self-care (01) ==
PROVIDERS: Emergency Provider Internal Medicine; PCP Family Medicine
DX: R10.2 Pelvic and perineal pain (principal); R39.15 Urgency of urination; R35.0 Frequency of micturition
CPT/HCPCS: 36415; 76830; 76856; 80053; 81003; 81015; 81025; 85025; 96372; 99282; 99284; J1885

== ENCOUNTER 2019-02-18 11:48 | Emergency (ER) | payer OTHER, MEDICAID, SELFPAY ==
[2019-02-18 11:55] VITALS: BP 115/85; PULSE 120; RESP 17; TEMP 36.7; O2SAT 99; BMI 20.8
--- NOTE | 2019-02-18 12:07 | ED.BACK ---
HPI - Back Pain/Injury General Chief Complaint: Back Pain/Injury Stated Complaint: back is messed up,falls and problems Time Seen by Provider: 02/18/19 12:07 Source: patient Mode of arrival: ambulatory Limitations: no limitations History of Present Illness HPI Narrative: Patient is a 28-year-old female who has chronic back pain she has had surgeries in the past presenting with worsening pain. She says that over the last 1 month she has had urinary incontinence she feels pain in both of her ankles. She has not had any fever. She is homeless she can't get comfortable. She does have a pain contract with her PCP and is taking oxycodone she says it is not helping. She denies any IV drug use. She says she was supposed to get an MRI outpatient her primary is working on a however nothing is been arranged yet. Complaint: back pain Onset (ago): month(s) (1) Duration: constant Location: lumbar spine and thoracic spine Severity: severe Quality: sharp Radiation: left leg and right leg Relieving factors: none Exacerbating factors: movement and sitting upright Related Data Home Medications Medication Instructions Recorded Confirmed ibuprofen 600 mg PO Q6HP PRN #0 10/01/17 11/29/18 aripiprazole 5 mg PO DAILY 02/18/19 02/18/19 desogestrel-ethinyl estradiol 1 tab PO DAILY 02/18/19 02/18/19 [Enskyce] zonisamide 200 mg PO DAILY 02/18/19 02/18/19 Previous Rx's Medication Instructions Recorded albuterol sulfate HFA 90 2 puff INHALATION Q4HP PRN #1 inh 04/02/18 mcg/actuation aerosol inhaler pregabalin 150 mg capsule 150 mg PO BID #60 cap 08/13/18 sertraline 100 mg tablet 100 mg PO DAILY #30 tab 08/27/18 ondansetron HCl 8 mg tablet 8 mg PO Q6H PRN #30 tab 10/27/18 rizatriptan 10 mg tablet 10 mg PO .COMPLEX PRN #6 tab 11/29/18 dicyclomine 20 mg tablet 20 mg PO QID PRN #30 tab 01/27/19 oxycodone-acetaminophen 5 mg-325 1 tab PO Q6H PRN #90 tab 02/07/19 mg tablet fluconazole 150 mg tablet 150 mg PO QWEEK 21 Days #4 tab 02/09/19 prednisone 40 mg PO DAILY #10 tab 02/18/19 Allergies Allergy/AdvReac Type Severity Reaction Status Date / Time gabapentin [GABAPENTIN] Allergy Mild too Verified 02/18/19 11:54 sedating codeine [CODEINE] Allergy Unknown stomach Verified 02/18/19 11:54 cramps clindamycin [CLINDAMYCIN] AdvReac Intermediate severe Verified 02/18/19 11:54 heartburn, bloating morphine [MORPHINE] AdvReac Intermediate Severe Verified 02/18/19 11:54 stomach cramps, vomiting tramadol [TRAMADOL] AdvReac Unknown vertigo, Verified 02/18/19 11:54 projectile vomiting pain contract Allergy Unknown Uncoded 11/29/18 11:01 Review of Systems Review of Systems GENERAL: Denies chills, fatigue, malaise, fever, sweats, travel HEENT: Denies sinus pain, ear pain, sore throat, difficulty swallowing, neck pain RESPIRATORY: Denies dyspnea, cough, wheezing, hemoptysis, sputum. CARDIOVASCULAR: Denies chest pain, palpitations, orthopnea, edema GASTROINTESTINAL: Denies nausea, vomiting, abdominal pain, diarrhea, constipation, melena. : + urinary incontinence MUSCULOSKELETAL: See HPI SKIN: No rash, no erythema, no pruritus NEUROLOGIC: Denies weakness, dizziness, headache, numbness, change in speech, confusion PSYCHIATRIC: No concerning psychosocial issues. 12 point review of systems is negative except for those stated above and HPI ON LICENSE OF [facility] Medical History IBS (irritable bowel syndrome) (Chronic ~2007) Ovarian cyst (Chronic ~2009) Headache (Chronic ~1999) Anxiety and depression (Chronic) Abnormal Pap smear of cervix (Chronic) Acne (Chronic ~2012) Ankle pain (Chronic) Frequent UTI (Chronic) Human papillomavirus (Chronic ~2008) Lumbar strain (Chronic) Migraines (Chronic) PTSD (post-traumatic stress disorder) (Chronic) Painful menstrual periods (Chronic) Seasonal allergies (Chronic) Shoulder pain (Chronic) Chickenpox (Resolved ~1991) Surgical History History of delivery (Resolved) History of delivery (Resolved) History of laminectomy (Resolved ~05/2017) History of microdiscectomy (Resolved) Anesthesia (Inactive) Status post laparoscopy (12/26/11) Family History Brother Age: 29 Hepatitis C Father Age: 49 Heart disease Mental health problem Heart attack Grandmother Breast cancer Grandfather Age: 77 Stroke Grandmother Age: 71 Heart attack Hepatitis C Lupus Social History household members: children Smoking Status: Current every day smoker Family History Brother Age: 29 Hepatitis C Father Age: 49 Heart disease Mental health problem Heart attack Grandmother Breast cancer Grandfather Age: 77 Stroke Grandmother Age: 71 Heart attack Hepatitis C Lupus Social History household members: children Smoking Status: Current every day smoker Exam Initial Vital Signs Initial Vital Signs: Vital Signs Temperature 98.1 F 02/18/19 11:55 Pulse Rate 120 H 02/18/19 11:55 Respiratory Rate 17 02/18/19 11:55 Blood Pressure 115/85 02/18/19 11:55 Pulse Oximetry 99 02/18/19 11:55 GENERAL: Crying young female appears in pain HEENT: Head atraumatic,EOMI, pupils reactive, face symmetric CARDIOVASCULAR: Regular rate and rhythm without murmurs, rubs or gallops. RESPIRATORY: Breath sounds equal bilaterally, no wheezes rales or rhonchi. ABDOMEN: Soft, nontender. Normoactive bowel sounds all 4 quadrants. No guarding or rebound. BACK: Midline tenderness Ismael lumbar junction more in the lumbar area. EXTREMITIES: Normal range of motion, no clubbing or edema. Neurovascularly intact RECTAL: Good rectal tone NEUROLOGICAL: Alert and oriented x4.Normal gait and speech. Cranial nerves II through XII grossly intact. Sensation in lower he is intact SKIN: Warm, dry, no laceration, no petechiae, no rashes or lesions. Course Orders Ordered: Discontinued Medications Diazepam (Valium) 5 mg PO NOW ONE Stop: 02/18/19 12:47 Last Admin: 02/18/19 12:57 Dose: 5 mg Diazepam (Valium) 5 mg PO NOW ONE Stop: 02/18/19 14:00 Last Admin: 02/18/19 14:04 Dose: 5 mg Hydromorphone HCl (Dilaudid) 1 mg IM NOW ONE Stop: 02/18/19 15:48 Last Admin: 02/18/19 15:49 Dose: 1 mg Hydromorphone HCl (Dilaudid) 1 mg IM NOW ONE Stop: 02/18/19 17:38 Last Admin: 02/18/19 17:39 Dose: 1 mg Ketorolac Tromethamine (Toradol) 60 mg IM NOW ONE Stop: 02/18/19 12:47 Last Admin: 02/18/19 12:57 Dose: 60 mg Consultations Consultation #1: prescription benefit specialist spine at [facility] [place], no indication for any acute surgery at this time no sign of cauda equina Time: 17:20 Vital Signs - 8 hr 02/18/19 11:55 02/18/19 13:32 02/18/19 17:12 Temperature 98.1 F Pulse Rate 120 H 95 H 96 H Respiratory Rate 14 Blood Pressure 115/85 Blood Pressure [Right Arm] 98/78 94/67 Pulse Oximetry 99 99 99 MDM - Back Pain/Injury Imaging Data MRI - lumbar: Radiologist's impression: .O. PROCEDURE: MR LUMBAR SPINE WO CON INDICATIONS: loss of urine, worsening back pain TECHNIQUE: Noncontrast sagittal T1 spin echo and T2 fast echo, sagittal STIR, axial T1 and T2 fast spin echo through the lumbar spine. In cases with scoliosis, additional coronal T2 fast spin echo may be performed. COMPARISON: [facility], MR, L-SPINE WITHOUT CONTRAST, 02/12/2017, 18:01. [facility], CT, CT ABDOMEN PELVIS W CON, 10/08/2018, 20:58. FINDINGS: Image quality: Excellent. Alignment and Curvature: There is normal bony alignment. Bone Marrow: Marrow is of normal overall signal. No acute vertebral body compression fractures. Spinal Cord: Conus medullaris terminates at the L1 level. Visualized cord demonstrates normal signal and size. Paraspinous Soft Tissues: No paravertebral masses. T12-L1: Normal appearance. L1-L2: Normal appearance. L2-L3: Normal appearance. L3-L4: The disc height and disk signal are well-preserved. Mild disc bulge is seen, with a mild central disc protrusion. No neural foraminal narrowing is seen. Mild central canal narrowing is seen. These imaging findings have progressed compared to the prior study. L4-L5: Moderate loss of disc height is seen. Loss of disc signal is seen. Moderate disc bulge is seen, with a central disc protrusion. Mild facet joint hypertrophy is seen. Moderate bilateral neural foraminal narrowing is seen, left worse than right. Mild to moderate central canal narrowing is seen. These imaging findings have progressed compared to the prior study. L5-S1: The disc height and disk signal are well-preserved. Minimal disc bulge is seen. [id number] facet hypertrophy is seen. There is mild right-sided and no significant left-sided neural foraminal narrowing seen. Minimal central canal narrowing is seen. When comparison is made with the prior examination, these findings are similar. IMPRESSION: Lower lumbar spine degenerative changes are seen, which are more prominent than would be expected for a patient of this age. The degenerative changes are mildly progressed at L3-L4 and L4-L5 compared to 2017. Dictated by: Jesús Subramanian M.D. on 02/18/2019 at 13:51 MDM Narrative Medical decision making narrative: Patient did not have any relief with Toradol or Valium. Due to her new urinary incontinence severe in worsening back pain I will get an MRI pain. MRI does show some mild to moderate central canal narrowing at L5-S1 region. Images have been forwarded to [facility] I have spoken with on-call spine surgeon. He said at this time there is absolutely no sign of cauda equina on her MRI. At this time no intervention needed. I discussed with patient she is to follow up outpatient recommended pain management. She understands that she will not be getting any prescription for narcotic medications. She has been given 2 doses of Dilaudid in the emergency department. Nothing further will be given at this time. Discharge Plan Departure Patient Disposition: Home Clinical Impression: Acute exacerbation of chronic low back pain, Lumbar radiculopathy Discharge Date/Time: 02/18/19 18:10 Interventions: ED Discharge Assessment Last Done: 02/18/19 18:09 Instructions: DI for Back Pain With Sciatica Activity Restrictions/Additional Instructions: *You have been diagnosed with acute on chronic back pain *What to do: At this time no surgery said no immediate or emergent surgery Recommend physical therapy, possible chronic pain management *Continue to take medications as directed Prednisone 40 mg once a day for 5 days --sent to [email or web address] *Follow up with your primary care provider in 2-3 days *Return to ER if you should have increasing leg weakness or any new, worsening or concerning symptoms Prescriptions: New prednisone 20 mg tablet 40 mg PO DAILY Qty: 10 RF: 0 No Action ibuprofen 600 MG tablet 600 mg PO Q6HP PRN (Reason: pain) Qty: 0 RF: 0 pregabalin [Lyrica] 150 mg capsule 150 mg PO BID Qty: 60 RF: 0 ondansetron HCl [Zofran] 8 mg tablet 8 mg PO Q6H PRN (Reason: nausea) Qty: 30 RF: 5 dicyclomine 20 mg tablet 20 mg PO QID PRN (Reason: IBS) Qty: 30 RF: 0 fluconazole 150 mg tablet 150 mg PO QWEEK 21 Days Qty: 4 RF: 0 albuterol sulfate [Ventolin HFA] 90 mcg/actuation HFA aerosol inhaler 2 puff INHALATION Q4HP PRN (Reason: shortness of breath or wheezing) Qty: 1 RF: 5 sertraline 100 mg tablet 100 mg PO DAILY Qty: 30 RF: 3 oxycodone-acetaminophen [Percocet] 5-325 mg tablet 1 tab PO Q6H PRN (Reason: pain) Qty: 90 RF: 0 desogestrel-ethinyl estradiol [Enskyce] 0.15-0.03 mg tablet 1 tab PO DAILY RF: 0 aripiprazole 5 mg tablet 5 mg PO DAILY RF: 0 zonisamide 100 mg capsule 200 mg PO DAILY RF: 0 rizatriptan 10 mg tablet 10 mg PO .COMPLEX PRN (Reason: migraine headache) Qty: 6 RF: 11 Referrals: John Eaton DO [Physician] - Pricila Eng DO [Primary Care Provider] -
--- NOTE | 2019-02-18 12:17 | PC.NURSE ---
States her PMD is aware of urinary incontinence and will order an MRI for this. This was not a new symptom. She states it is 6 months before she can get into a orthopedic surgeon and her insurance is trying to find someone for her to follow up with sooner. States pain meds not helping for past 3 days
[2019-02-18] MEDS: KETOROLAC 60 MG/2 ML VIAL IM (12:57)
[2019-02-18] MEDS: diazePAM 5 MG TABLET PO ×2 (12:57→14:04)
--- NOTE | 2019-02-18 13:03 | PC.NURSE ---
States has not taken any of her oxycodone today because it just wasnt doing anything. States when given 5mg of valium I used to take 10mg 3 times a day. And she became very upset over moving to rt side for injection of toradol.
[2019-02-18 13:32] VITALS: BP 98/78; PULSE 95; RESP 21; O2SAT 99
--- NOTE | 2019-02-18 13:59 | DI.MRI.S_ITS ---
PROCEDURE: MR LUMBAR SPINE WO CON INDICATIONS: loss of urine, worsening back pain TECHNIQUE: Noncontrast sagittal T1 spin echo and T2 fast echo, sagittal STIR, axial T1 and T2 fast spin echo through the lumbar spine. In cases with scoliosis, additional coronal T2 fast spin echo may be performed. COMPARISON: [facility], MR, L-SPINE WITHOUT CONTRAST, 02/12/2017, 18:01. [facility], CT, CT ABDOMEN PELVIS W CON, 10/08/2018, 20:58. FINDINGS: Image quality: Excellent. Alignment and Curvature: There is normal bony alignment. Bone Marrow: Marrow is of normal overall signal. No acute vertebral body compression fractures. Spinal Cord: Conus medullaris terminates at the L1 level. Visualized cord demonstrates normal signal and size. Paraspinous Soft Tissues: No paravertebral masses. T12-L1: Normal appearance. L1-L2: Normal appearance. L2-L3: Normal appearance. L3-L4: The disc height and disk signal are well-preserved. Mild disc bulge is seen, with a mild central disc protrusion. No neural foraminal narrowing is seen. Mild central canal narrowing is seen. These imaging findings have progressed compared to the prior study. L4-L5: Moderate loss of disc height is seen. Loss of disc signal is seen. Moderate disc bulge is seen, with a central disc protrusion. Mild facet joint hypertrophy is seen. Moderate bilateral neural foraminal narrowing is seen, left worse than right. Mild to moderate central canal narrowing is seen. These imaging findings have progressed compared to the prior study. L5-S1: The disc height and disk signal are well-preserved. Minimal disc bulge is seen. [id number] facet hypertrophy is seen. There is mild right-sided and no significant left-sided neural foraminal narrowing seen. Minimal central canal narrowing is seen. When comparison is made with the prior examination, these findings are similar. IMPRESSION: Lower lumbar spine degenerative changes are seen, which are more prominent than would be expected for a patient of this age. The degenerative changes are mildly progressed at L3-L4 and L4-L5 compared to 2017. Dictated by: Jesús Subramanian M.D. on 02/18/2019 at 13:51 Approved by: Jesús Subramanian M.D. on 02/18/2019 at 13:56
[2019-02-18] MEDS: HYDROMORPHONE 1 MG INJ IM ×2 (15:49→17:39)
[2019-02-18 17:12] VITALS: BP 94/67; PULSE 96; RESP 14; O2SAT 99
[2019-02-18 18:09] VITALS: BP 122/73; PULSE 88; RESP 15; O2SAT 97
== END 2019-02-18 18:10 | disposition home or self-care (01) ==
PROVIDERS: Emergency Provider Emergency Medicine; PCP Family Medicine
DX: M54.5 Low back pain (principal); M54.16 Radiculopathy, lumbar region; R32 Unspecified urinary incontinence
CPT/HCPCS: 72148; 96372; 99282; 99283; J1170; J1885

== ENCOUNTER 2019-02-27 19:16 | Emergency (ER) | payer OTHER, MEDICAID, SELFPAY ==
[2019-02-27 19:24] VITALS: BP 147/86; PULSE 127; RESP 20; TEMP 37; O2SAT 99
--- NOTE | 2019-02-27 19:37 | ED.BACK ---
HPI - Back Pain/Injury General Chief Complaint: Back Pain/Injury Stated Complaint: states back symptoms have gotten worse Time Seen by Provider: 02/27/19 19:25 Source: patient Mode of arrival: ambulatory Limitations: no limitations History of Present Illness HPI Narrative: 28-year-old female with known chronic low-back pain. Is on a pain contract. Was seen here in the emergency department within the past 2 weeks and had an MRI performed. Showed no acute pathology. Patient does have pain medications at home. She returns today stating that she continues to have pain in her right lower extremity. She has been on prednisone in the past with the last course of being during her last visit to the emergency department. She states she has been on prednisone in the past and has never helped. She describes the pain as the outside of her upper leg and then circumferential from her knee down. Related Data Home Medications Medication Instructions Recorded Confirmed ibuprofen 600 mg PO Q6HP PRN #0 10/01/17 11/29/18 desogestrel-ethinyl estradiol 1 tab PO DAILY 02/18/19 02/18/19 [Enskyce] zonisamide 200 mg PO DAILY 02/18/19 02/18/19 Previous Rx's Medication Instructions Recorded albuterol sulfate HFA 90 2 puff INHALATION Q4HP PRN #1 inh 04/02/18 mcg/actuation aerosol inhaler sertraline 100 mg tablet 100 mg PO DAILY #30 tab 08/27/18 ondansetron HCl 8 mg tablet 8 mg PO Q6H PRN #30 tab 10/27/18 rizatriptan 10 mg tablet 10 mg PO .COMPLEX PRN #6 tab 11/29/18 oxycodone-acetaminophen 5 mg-325 1 tab PO Q6H PRN #90 tab 02/07/19 mg tablet fluconazole 150 mg tablet 150 mg PO QWEEK 21 Days #4 tab 02/09/19 prednisone 40 mg PO DAILY #10 tab 02/18/19 oxycodone-acetaminophen 10 mg-325 1 tab PO TID PRN #30 tab 02/21/19 mg tablet pregabalin 150 mg capsule 150 mg PO BID #60 cap 02/22/19 dicyclomine 20 mg tablet 20 mg PO QID PRN #30 tab 02/25/19 Allergies Allergy/AdvReac Type Severity Reaction Status Date / Time gabapentin [GABAPENTIN] Allergy Mild too Verified 02/18/19 11:54 sedating codeine [CODEINE] Allergy Unknown stomach Verified 02/18/19 11:54 cramps clindamycin [CLINDAMYCIN] AdvReac Intermediate severe Verified 02/18/19 11:54 heartburn, bloating morphine [MORPHINE] AdvReac Intermediate Severe Verified 02/18/19 11:54 stomach cramps, vomiting tramadol [TRAMADOL] AdvReac Unknown vertigo, Verified 02/18/19 11:54 projectile vomiting pain contract Allergy Unknown Uncoded 11/29/18 11:01 Review of Systems Musculoskeletal Reports abnormal gait Comments: Back pain and tingling down her right leg Integumentary/Breasts Denies new lesions Neurologic Reports abnormal gait and Reports paresthesias COUNTS INCLUDE 234 BEDS AT THE [facility] Medical History IBS (irritable bowel syndrome) (Chronic ~2007) Ovarian cyst (Chronic ~2009) Headache (Chronic ~1999) Anxiety and depression (Chronic) Abnormal Pap smear of cervix (Chronic) Acne (Chronic ~2012) Ankle pain (Chronic) Frequent UTI (Chronic) Human papillomavirus (Chronic ~2008) Lumbar strain (Chronic) Migraines (Chronic) PTSD (post-traumatic stress disorder) (Chronic) Painful menstrual periods (Chronic) Seasonal allergies (Chronic) Shoulder pain (Chronic) Chickenpox (Resolved ~1991) Social History household members: children Smoking Status: Current every day smoker Exam Initial Vital Signs Initial Vital Signs: Vital Signs Temperature 98.6 F 02/27/19 19:24 Pulse Rate 127 H 02/27/19 19:24 Respiratory Rate 20 02/27/19 19:24 Blood Pressure 147/86 H 02/27/19 19:24 Pulse Oximetry 99 02/27/19 19:24 Const General: cooperative, well developed, well groomed and No acute distress Orientation: alert and awake HENUT Head: normal to inspection and normocephalic Resp Effort & Inspection: normal respiratory effort Cardio Rate: tachycardic Pulses: dorsalis pedis present on the right Skin Lesions: no lesions Rashes: no rashes Neuro Other: Patient with tingling down the right lower extremity. Was able to ambulate. Extrem General: capillary refill normal Course Vital Signs - 8 hr 02/27/19 19:24 Temperature 98.6 F Pulse Rate 127 H Respiratory Rate 20 Blood Pressure 147/86 H Pulse Oximetry 99 MDM - Back Pain/Injury MDM Narrative Medical decision making narrative: I did review the patient's medical record. She is currently on a pain contract. Informed her that there was not much more we could do for her at to the emergency department. She has had an MRI. Her history and physical exam is not consistent with cauda equina or other acute surgical back issues. Informed her that she needed to talk with her primary doctor about further pain management. Informed her that she needed to contact the Physical therapy which she already has a referral in for. Also informed her that she needed to talk with her primary doctor about a referral to see a field sales specialist. Patient asked for pain medication here in the emergency department however I declined telling her that do not manage chronic pain in the emergency department. Discharge Plan Departure Patient Disposition: Home Clinical Impression: Chronic low back pain with right-sided sciatica Qualifiers: Back pain laterality: right Qualified Code(s): M54.41 - Lumbago with sciatica, right side Instructions: Managing Chronic Low Back Pain, Back Pain (Alternative Therapy), Activity May Be Better then Rest for Low Back Pain Recovery Activity Restrictions/Additional Instructions: Unfortunately there is not much more we can do for you out of the emergency department. You have had an MRI. You need to talk with your primary doctor and whoever is managing your pain contract about pain control. I would talk with your primary doctor about getting in to see physical therapy. I would also follow up on any referrals to see a field sales specialist. The emergency department does not manage chronic pain this needs to come from 1 provider. Continue all of your medications as directed Prescriptions: No Action ibuprofen 600 MG tablet 600 mg PO Q6HP PRN (Reason: pain) Qty: 0 RF: 0 ondansetron HCl [Zofran] 8 mg tablet 8 mg PO Q6H PRN (Reason: nausea) Qty: 30 RF: 5 fluconazole 150 mg tablet 150 mg PO QWEEK 21 Days Qty: 4 RF: 0 oxycodone-acetaminophen 10-325 mg tablet 1 tab PO TID PRN (Reason: pain) Qty: 30 RF: 0 Lyrica 150 mg capsule 150 mg PO BID Qty: 60 RF: 0 dicyclomine 20 mg tablet 20 mg PO QID PRN (Reason: IBS) Qty: 30 RF: 0 albuterol sulfate [Ventolin HFA] 90 mcg/actuation HFA aerosol inhaler 2 puff INHALATION Q4HP PRN (Reason: shortness of breath or wheezing) Qty: 1 RF: 5 sertraline 100 mg tablet 100 mg PO DAILY Qty: 30 RF: 3 oxycodone-acetaminophen [Percocet] 5-325 mg tablet 1 tab PO Q6H PRN (Reason: pain) Qty: 90 RF: 0 desogestrel-ethinyl estradiol [Enskyce] 0.15-0.03 mg tablet 1 tab PO DAILY RF: 0 zonisamide 100 mg capsule 200 mg PO DAILY RF: 0 prednisone 20 mg tablet 40 mg PO DAILY Qty: 10 RF: 0 rizatriptan 10 mg tablet 10 mg PO .COMPLEX PRN (Reason: migraine headache) Qty: 6 RF: 11 Referrals: Pricila Eng DO [Primary Care Provider] -
--- NOTE | 2019-02-27 19:41 | ED_ITS ---
HPI - Back Pain/Injury General Chief Complaint: Back Pain/Injury Stated Complaint: states back symptoms have gotten worse Time Seen by Provider: 02/27/19 19:25 Source: patient Mode of arrival: ambulatory Limitations: no limitations History of Present Illness HPI Narrative: 28-year-old female with known chronic low-back pain. Is on a pain contract. Was seen here in the emergency department within the past 2 weeks and had an MRI performed. Showed no acute pathology. Patient does have pain medications at home. She returns today stating that she continues to have pain in her right lower extremity. She has been on prednisone in the past with the last course of being during her last visit to the emergency department. She states she has been on prednisone in the past and has never helped. She describes the pain as the outside of her upper leg and then circumferential from her knee down. Related Data Home Medications Medication Instructions Recorded Confirmed ibuprofen 600 mg PO Q6HP PRN #0 10/01/17 11/29/18 desogestrel-ethinyl estradiol 1 tab PO DAILY 02/18/19 02/18/19 [Enskyce] zonisamide 200 mg PO DAILY 02/18/19 02/18/19 Previous Rx's Medication Instructions Recorded albuterol sulfate HFA 90 2 puff INHALATION Q4HP PRN #1 inh 04/02/18 mcg/actuation aerosol inhaler sertraline 100 mg tablet 100 mg PO DAILY #30 tab 08/27/18 ondansetron HCl 8 mg tablet 8 mg PO Q6H PRN #30 tab 10/27/18 rizatriptan 10 mg tablet 10 mg PO .COMPLEX PRN #6 tab 11/29/18 oxycodone-acetaminophen 5 mg-325 1 tab PO Q6H PRN #90 tab 02/07/19 mg tablet fluconazole 150 mg tablet 150 mg PO QWEEK 21 Days #4 tab 02/09/19 prednisone 40 mg PO DAILY #10 tab 02/18/19 oxycodone-acetaminophen 10 mg-325 1 tab PO TID PRN #30 tab 02/21/19 mg tablet pregabalin 150 mg capsule 150 mg PO BID #60 cap 02/22/19 dicyclomine 20 mg tablet 20 mg PO QID PRN #30 tab 02/25/19 Allergies Allergy/AdvReac Type Severity Reaction Status Date / Time gabapentin [GABAPENTIN] Allergy Mild too Verified 02/18/19 11:54 sedating codeine [CODEINE] Allergy Unknown stomach Verified 02/18/19 11:54 cramps clindamycin [CLINDAMYCIN] AdvReac Intermediate severe Verified 02/18/19 11:54 heartburn, bloating morphine [MORPHINE] AdvReac Intermediate Severe Verified 02/18/19 11:54 stomach cramps, vomiting tramadol [TRAMADOL] AdvReac Unknown vertigo, Verified 02/18/19 11:54 projectile vomiting pain contract Allergy Unknown Uncoded 11/29/18 11:01 Review of Systems Musculoskeletal Reports abnormal gait Comments: Back pain and tingling down her right leg Integumentary/Breasts Denies new lesions Neurologic Reports abnormal gait and Reports paresthesias [facility] Medical History IBS (irritable bowel syndrome) (Chronic ~2007) Ovarian cyst (Chronic ~2009) Headache (Chronic ~1999) Anxiety and depression (Chronic) Abnormal Pap smear of cervix (Chronic) Acne (Chronic ~2012) Ankle pain (Chronic) Frequent UTI (Chronic) Human papillomavirus (Chronic ~2008) Lumbar strain (Chronic) Migraines (Chronic) PTSD (post-traumatic stress disorder) (Chronic) Painful menstrual periods (Chronic) Seasonal allergies (Chronic) Shoulder pain (Chronic) Chickenpox (Resolved ~1991) Social History household members: children Smoking Status: Current every day smoker Exam Initial Vital Signs Initial Vital Signs: Vital Signs Temperature 98.6 F 02/27/19 19:24 Pulse Rate 127 H 02/27/19 19:24 Respiratory Rate 20 02/27/19 19:24 Blood Pressure 147/86 H 02/27/19 19:24 Pulse Oximetry 99 02/27/19 19:24 Const General: cooperative, well developed, well groomed and No acute distress Orientation: alert and awake HENLA Head: normal to inspection and normocephalic Resp Effort & Inspection: normal respiratory effort Cardio Rate: tachycardic Pulses: dorsalis pedis present on the right Skin Lesions: no lesions Rashes: no rashes Neuro Other: Patient with tingling down the right lower extremity. Was able to ambulate. Extrem General: capillary refill normal Course Vital Signs - 8 hr 02/27/19 19:24 Temperature 98.6 F Pulse Rate 127 H Respiratory Rate 20 Blood Pressure 147/86 H Pulse Oximetry 99 MDM - Back Pain/Injury MDM Narrative Medical decision making narrative: I did review the patient's medical record. She is currently on a pain contract. Informed her that there was not much more we could do for her at to the emergency department. She has had an MRI. Her history and physical exam is not consistent with cauda equina or other acute surgical back issues. Informed her that she needed to talk with her primary doctor about further pain management. Informed her that she needed to contact the Physical therapy which she already has a referral in for. Also informed her that she needed to talk with her primary doctor about a referral to see a disease education specialist. Patient asked for pain medication here in the emergency department however I declined telling her that do not manage chronic pain in the emergency department. Discharge Plan Departure Patient Disposition: Home Clinical Impression: Chronic low back pain with right-sided sciatica Qualifiers: Back pain laterality: right Qualified Code(s): M54.41 - Lumbago with sciatica, right side Instructions: Managing Chronic Low Back Pain, Back Pain (Alternative Therapy), Activity May Be Better then Rest for Low Back Pain Recovery Activity Restrictions/Additional Instructions: Unfortunately there is not much more we can do for you out of the emergency department. You have had an MRI. You need to talk with your primary doctor and whoever is managing your pain contract about pain control. I would talk with y our primary doctor about getting in to see physical therapy. I would also follow up on any referrals to see a disease education specialist. The emergency department does not manage chronic pain this needs to come from 1 provider. Continue all of your medications as directed Prescriptions: No Action ibuprofen 600 MG tablet 600 mg PO Q6HP PRN (Reason: pain) Qty: 0 RF: 0 ondansetron HCl [Zofran] 8 mg tablet 8 mg PO Q6H PRN (Reason: nausea) Qty: 30 RF: 5 fluconazole 150 mg tablet 150 mg PO QWEEK 21 Days Qty: 4 RF: 0 oxycodone-acetaminophen 10-325 mg tablet 1 tab PO TID PRN (Reason: pain) Qty: 30 RF: 0 Lyrica 150 mg capsule 150 mg PO BID Qty: 60 RF: 0 dicyclomine 20 mg tablet 20 mg PO QID PRN (Reason: IBS) Qty: 30 RF: 0 albuterol sulfate [Ventolin HFA] 90 mcg/actuation HFA aerosol inhaler 2 puff INHALATION Q4HP PRN (Reason: shortness of breath or wheezing) Qty: 1 RF: 5 sertraline 100 mg tablet 100 mg PO DAILY Qty: 30 RF: 3 oxycodone-acetaminophen [Percocet] 5-325 mg tablet 1 tab PO Q6H PRN (Reason: pain) Qty: 90 RF: 0 desogestrel-ethinyl estradiol [Enskyce] 0.15-0.03 mg tablet 1 tab PO DAILY RF: 0 zonisamide 100 mg capsule 200 mg PO DAILY RF: 0 prednisone 20 mg tablet 40 mg PO DAILY Qty: 10 RF: 0 rizatriptan 10 mg tablet 10 mg PO .COMPLEX PRN (Reason: migraine headache) Qty: 6 RF: 11 Referrals: Pricila Eng DO [Primary Care Provider] -
--- NOTE | 2019-02-27 20:01 | PC.NURSE ---
Pt with chronic back pain and recent MRI. Presents for low back pain that is worse today. Pt has not followed up yet with referrals.
--- NOTE | 2019-02-27 20:03 | PC.NURSE ---
Patient with steady gait and no loss of bowel or bladder. Advised by Dr. Younger to f/u with her referral MD and pain management physicians
[2019-02-27 20:04] VITALS: BP 139/80; PULSE 115; RESP 16; O2SAT 98
== END 2019-02-27 20:06 | disposition home or self-care (01) ==
PROVIDERS: Emergency Provider Emergency Medicine; PCP Family Medicine
DX: M54.41 Lumbago with sciatica, right side (principal)
CPT/HCPCS: 99282; 99283

== ENCOUNTER 2019-04-01 17:48 | Emergency (ER) | payer OTHER, MEDICAID, SELFPAY ==
[2019-04-01 18:16] VITALS: BP 111/71; PULSE 111; RESP 18; TEMP 36.8; O2SAT 99; BMI 20.5
--- NOTE | 2019-04-01 18:25 | ED_ITS ---
HPI - Skin/Abscess/Foreign Bdy <Kandi WellerARGENIS - Last Filed: 04/01/19 22:00> General Chief complaint: Skin/Abscess/Foreign Body Stated complaint: several cysts under left arm/antibiotics currently Time Seen by Provider: 04/01/19 18:03 Source: patient Mode of arrival: ambulatory Limitations: no limitations History of Present Illness HPI narrative: 28-year-old female with a history of anxiety, skin infections, and is currently on a pain contract, presents emergency department today complaining of multiple abscess in her left armpit. She states that they have been there about 1.5 weeks and are not getting better despite the fact that she is on Bactrim at this time. She reports 4/10 pain that is worse with movement and touching the area. She states a few years ago she had to have abscesses in her other armpit drained and states she is very anxious about this procedure. Patient states she has had occasional chills on and off with some nausea. She denies any fevers, chest pain, shortness of breath, abdominal pain, vomiting, change in bowel or bladder problems, or syncope. MD complaint: abscess/boil Onset (ago): week(s) Location: LLE Severity: moderate Severity scale (1-10): 4 Quality: dull Pain Consistency: constant Exacerbating factors: movement Context: none Associated symptoms: chills Related Data Home Medications Medication Instructions Recorded Confirmed ibuprofen 600 mg PO Q6HP PRN #0 10/01/17 03/25/19 Previous Rx's Medication Instructions Recorded albuterol sulfate HFA 90 2 puff INHALATION Q4HP PRN #1 inh 04/02/18 mcg/actuation aerosol inhaler sertraline 100 mg tablet 100 mg PO DAILY #30 tab 08/27/18 ondansetron HCl 8 mg tablet 8 mg PO Q6H PRN #30 tab 10/27/18 rizatriptan 10 mg tablet 10 mg PO .COMPLEX PRN #6 tab 11/29/18 zonisamide 25 mg capsule 25 mg PO DAILY #120 cap 03/02/19 dicyclomine 20 mg tablet 20 mg PO QID PRN #30 tab 03/07/19 pregabalin 150 mg capsule 150 mg PO BID #60 cap 03/07/19 oxycodone-acetaminophen 10 mg-325 1 tab PO TID PRN #90 tab 03/18/19 mg tablet gentamicin 0.3 % eye drops 2 drop EYE-LEFT QID #5 ml 03/25/19 mupirocin 2 % topical ointment 1 applictn TOP TID #30 gram 03/25/19 sulfamethoxazole 800 1 tab PO BID #20 tab 03/25/19 mg-trimethoprim 160 mg tablet clindamycin HCl 450 mg PO TID 7 Days #63 cap 04/01/19 sulfamethoxazole-trimethoprim 1 tab PO BID 7 Days #14 tab 04/01/19 [Bactrim DS] Allergies Allergy/AdvReac Type Severity Reaction Status Date / Time gabapentin [GABAPENTIN] Allergy Mild too Verified 04/01/19 18:16 sedating codeine [CODEINE] Allergy Unknown stomach Verified 04/01/19 18:16 cramps clindamycin [CLINDAMYCIN] AdvReac Intermediate severe Verified 04/01/19 18:16 heartburn, bloating morphine [MORPHINE] AdvReac Intermediate Severe Verified 04/01/19 18:16 stomach cramps, vomiting tramadol [TRAMADOL] AdvReac Unknown vertigo, Verified 04/01/19 18:16 projectile vomiting pain contract Allergy Unknown Uncoded 04/01/19 18:16 Review of Systems <ARGENIS Riggs - Last Filed: 04/01/19 22:00> Review of Systems REVIEW OF SYSTEMS: GENERAL: Denies fever or chills. HENT: Denies head trauma. EYE: Denies double vision or vision loss. CARDIOVASCULAR: Denies syncope. MUSCULOSKELETAL: Denies weakness, or deformities. INTEGUMENTARY: Complains of abscesses to left axilla area, see HPI. NEURO: Denies numbness or tingling. PFSH <ARGENIS Riggs - Last Filed: 04/01/19 22:00> Medical History IBS (irritable bowel syndrome) (Chronic ~2007) Ovarian cyst (Chronic ~2009) Headache (Chronic ~1999) Anxiety and depression (Chronic) Abnormal Pap smear of cervix (Chronic) Acne (Chronic ~2012) Ankle pain (Chronic) Frequent UTI (Chronic) Human papillomavirus (Chronic ~2008) Lumbar strain (Chronic) Migraines (Chronic) PTSD (post-traumatic stress disorder) (Chronic) Painful menstrual periods (Chronic) Seasonal allergies (Chronic) Shoulder pain (Chronic) Chickenpox (Resolved ~1991) Surgical History History of delivery (Resolved) History of delivery (Resolved) History of laminectomy (Resolved ~05/2017) History of microdiscectomy (Resolved) Anesthesia (Inactive) Status post laparoscopy (12/26/11) Family History Brother Age: 29 Hepatitis C Father Age: 49 Heart disease Mental health problem Heart attack Grandmother Breast cancer Grandfather Age: 77 Stroke Grandmother Age: 71 Heart attack Hepatitis C Lupus Social History household members: children Smoking Status: Current every day smoker Family History Brother Age: 29 Hepatitis C Father Age: 49 Heart disease Mental health problem Heart attack Grandmother Breast cancer Grandfather Age: 77 Stroke Grandmother Age: 71 Heart attack Hepatitis C Lupus Social History household members: children Smoking Status: Current every day smoker Exam <ARGENIS Riggs - Last Filed: 04/01/19 22:00> Initial Vital Signs Initial Vital Signs: Vital Signs Temperature 98.2 F 04/01/19 18:16 Pulse Rate 111 H 04/01/19 18:16 Respiratory Rate 18 04/01/19 18:16 Blood Pressure 111/71 04/01/19 18:16 Pulse Oximetry 99 04/01/19 18:16 PHYSICAL EXAMINATION: GENERAL: Well groomed, alert, and cooperative. Answers questions promptly and appropriately. Vital signs noted. HENT: Normocephalic, atraumatic. RESPIRATORY: Normal respiratory rate, trachea midline, airway patent. No stridor, nasal flaring or accessory muscle use. MUSCULOSKELETAL: Normal gait and coordination. Equal tone and mass bilaterally. EXTREMITIES: CMS intact. Moves all extremities. SKIN: Warm, dry, soft, appropriate color for ethnicity. There are 3 abscesses located to left axilla area measuring [id number], 7cm x 3cm, and 1cm x 1cm in diameter. Small amount of surrounding erythema. Tender to palpation. A large amount of purulent discharge was expressed during I&D. Patient was very intolerant to procedure even after administration of Ativan and lidocaine. NEURO: Alert and Oriented X 3. Good coordination. PSYCH: Appropriate affect and mood. <David Ludwig DO - Last Filed: 04/02/19 04:10> Initial Vital Signs Initial Vital Signs: Vital Signs Temperature 98.2 F 04/01/19 18:16 Pulse Rate 111 H 04/01/19 18:16 Respiratory Rate 18 04/01/19 18:16 Blood Pressure 111/71 04/01/19 18:16 Pulse Oximetry 99 04/01/19 18:16 Procedures <ARGENIS Riggs - Last Filed: 04/01/19 22:00> Abscess I/D Site: upper extremity Side (if applicable): left Sedation/analgesia: other (Ativan) Local Anesthetic: lidocaine 1% and with bicarb Amount of anesthesia used (mL): 10 Technique: incised with #11 blade Amount of fluid expressed (mL): 10 Irrigation: Yes Packing used?: none Complications: pain Course <ARGENIS Riggs - Last Filed: 04/01/19 22:00> Course Narrative: Patient was requesting narcotic pain medication, and extensive conversation with patient that I cannot prescribe her narcotic pain medication for 2 reasons 1 she is on a pain contract and 2. She was given Ativan for her anxiety, explained that mixing these 2 medications is dangerous to her health. She was offered Toradol which she declined. She was given Tylenol and ibuprofen. Orders Ordered: Discontinued Medications Acetaminophen (Tylenol) 975 mg PO NOW ONE Stop: 04/01/19 19:16 Last Admin: 04/01/19 19:49 Dose: 975 mg Ibuprofen (Advil) 800 mg PO NOW ONE Stop: 04/01/19 19:16 Last Admin: 04/01/19 19:48 Dose: 800 mg Lidocaine/Sodium Bicarbonate (Buffered Lidocaine 10 Ml Syr) 10 ml INJ NOW ONE Stop: 04/01/19 18:21 Lorazepam (Ativan) 1 mg IM NOW ONE Stop: 04/01/19 18:21 Last Admin: 04/01/19 18:32 Dose: 1 mg Reevaluation(s) Reevaluation #1: Upon re-evaluation her wound continued to drain, there dressed with gauze. A prescribed her a longer course of antibiotics and she was told to follow up with her primary care provider. Initially I prescribed her c lindamycin but she stated that she was allergic to that, so I prescribed her a longer course of Bactrim. Vital Signs - 8 hr 04/01/19 18:16 04/01/19 19:56 Temperature 98.2 F Pulse Rate 111 H 107 H Respiratory Rate 18 21 Blood Pressure 111/71 Blood Pressure [Right Arm] 105/73 Pulse Oximetry 99 99 <David Ludwig DO - Last Filed: 04/02/19 04:10> Orders Ordered: Discontinued Medications Acetaminophen (Tylenol) 975 mg PO NOW ONE Stop: 04/01/19 19:16 Last Admin: 04/01/19 19:49 Dose: 975 mg Ibuprofen (Advil) 800 mg PO NOW ONE Stop: 04/01/19 19:16 Last Admin: 04/01/19 19:48 Dose: 800 mg Lidocaine/Sodium Bicarbonate (Buffered Lidocaine 10 Ml Syr) 10 ml INJ NOW ONE Stop: 04/01/19 18:21 Lorazepam (Ativan) 1 mg IM NOW ONE Stop: 04/01/19 18:21 Last Admin: 04/01/19 18:32 Dose: 1 mg Vital Signs - 8 hr 04/01/19 18:16 04/01/19 19:56 Temperature 98.2 F Pulse Rate 111 H 107 H Respiratory Rate 18 21 Blood Pressure 111/71 Blood Pressure [Right Arm] 105/73 Pulse Oximetry 99 99 MDM - Skin/Abscess/Foreign Bdy <ARGENIS Riggs - Last Filed: 04/01/19 22:00> Medical Records Attestation: I reviewed the patient's medical records. Lab Data Attestation: I reviewed the patient's lab results. MDM Narrative Medical decision making narrative: Simple laceration requiring I&D, antibiotics given and follow-up suggested for patient. Extensive conversation was had around the use of narcotic medication and her pain contract. It was reasonable to give ibuprofen and lidocaine for this procedure. Additionally due to her anxiety she was given Ativan, however the patient left very unhappy as she wanted something stronger for pain. I explained extensively that we cannot use these 2 medications together as they will suppress her breathing and they are dangerous for her health.. Discharge Plan Departure Patient Disposition: Home Clinical Impression: Abscess Discharge Date/Time: 04/01/19 20:25 Interventions: ED Discharge Assessment Last Done: 04/01/19 20:24 Instructions: DI for Skin Abscess Activity Restrictions/Additional Instructions: Thank you for entrusting me with your care today. As discussed, I have drained 3 abscesses in your left arm. They will continue to use for the next few days, please keep them covered with bandages. I have given a longer course of the antibiotic regimen, please take this until it is complete. Follow up with your primary care provider in the next week for re-evaluation. Return to the emergency department if you develop fevers, chest pain, shortness of breath, increased size your abscesses, surrounding erythema, or syncope. Prescriptions: New clindamycin HCl 150 mg capsule 450 mg PO TID 7 Days Qty: 63 RF: 0 sulfamethoxazole-trimethoprim [Bactrim DS] 800-160 mg tablet 1 tab PO BID 7 Days Qty: 14 RF: 0 No Action ibuprofen 600 MG tablet 600 mg PO Q6HP PRN (Reason: pain) Qty: 0 RF: 0 ondansetron HCl [Zofran] 8 mg tablet 8 mg PO Q6H PRN (Reason: nausea) Qty: 30 RF: 5 Lyrica 150 mg capsule 150 mg PO BID Qty: 60 RF: 0 dicyclomine 20 mg tablet 20 mg PO QID PRN (Reason: IBS) Qty: 30 RF: 0 oxycodone-acetaminophen 10-325 mg tablet 1 tab PO TID PRN (Reason: pain) Qty: 90 RF: 0 albuterol sulfate [Ventolin HFA] 90 mcg/actuation HFA aerosol inhaler 2 puff INHALATION Q4HP PRN (Reason: shortness of breath or wheezing) Qty: 1 RF: 5 sertraline 100 mg tablet 100 mg PO DAILY Qty: 30 RF: 3 sulfamethoxazole-trimethoprim [Bactrim DS] 800-160 mg tablet 1 tab PO BID Qty: 20 RF: 0 gentamicin 0.3 % drops 2 drop EYE-LEFT QID Qty: 5 RF: 0 mupirocin 2 % ointment 1 applictn TOP TID Qty: 30 RF: 0 zonisamide 25 mg capsule 25 mg PO DAILY Qty: 120 RF: 2 rizatriptan 10 mg tablet 10 mg PO .COMPLEX PRN (Reason: migraine headache) Qty: 6 RF: 11 Referrals: Pricila Eng DO [Primary Care Provider] - <David Ludwig DO - Last Filed: 04/02/19 04:10> Cosign ED Attending Niraj Attestation: I was immediately available in the department for consultation. Documentation has been reviewed. I agree with assessment and plan.
[2019-04-01] MEDS: LORazepam 2 MG/ML INJ 1 MG IM (18:32)
[2019-04-01] MEDS: IBUPROFEN 400 MG TABLET 800 MG PO (19:48)
[2019-04-01] MEDS: ACETAMINOPHEN 325 MG TABLET 975 MG PO (19:49)
[2019-04-01 19:56] VITALS: BP 105/73; PULSE 107; RESP 21; O2SAT 99
== END 2019-04-01 20:25 | disposition home or self-care (01) ==
PROVIDERS: Emergency Provider Nurse Practitioner; PCP Family Medicine
DX: L02.91 Cutaneous abscess, unspecified (principal)
CPT/HCPCS: 10060; 96372; 99282; 99283; J2060

== ENCOUNTER → 2019-07-15 17:09 | Outpatient (CLI) | payer OTHER, MEDICAID, SELFPAY | PROVIDERS: PCP Family Medicine; Visit Provider Family Medicine | DX: Z01.89 Encounter for other specified special examinations (principal) | CPT/HCPCS: 80307 ==